=== PATIENT | female | born 1950 | race Caucasian/White ===

== ENCOUNTER → 2020-11-23 14:51 | Outpatient (CLI) | payer MEDICARE, SELFPAY ==
[2020-11-23 17:24] LABS: Absolute Lymphocyte Count 1.34 X10^3/uL (0.83-4.51); Absolute Neutrophil Count 8.7 X10^3/uL (2.0-7.7); Basophil# 0.03 X10^3/uL; Basophil% 0.3 % (0-1); Eosinophil# 0.06 X10^3/uL; Eosinophils% 0.6 % (0-5); Hematocrit 44.6 % (37-47); Lymphocyte # 1.34 X10^3/ul (4.0); Lymphocyte % 12.4 % (19-41); Mean Corp Hgb Conc 35.9 g/dL (32-36); Mean Corpuscular Hgb 34.1 pg (27.0-32.0); Mean Corpuscular Volume 95.1 fL (81-99); Monocyte% 5.6 % (0-10); NRBC Flagged by Analyzer 0 % (0-5); Neutrophil # 8.71 X10^3/uL (2.7-7.7); Neutrophil % 80.7 % (47-70); Platelet Count 217 K/mm3 (150-450); RBC Distribution Width CV 13.2 % (11.6-14.6); RBC Distribution Width SD 42.9 fl (35.1-43.9); Red Blood Count 4.69 M/mm3 (4.2-5.4); White Blood Count 10.8 K/mm3 (4.4-11.0)
[2020-11-23 17:39] LABS: Erythrocyte Sedimentation Rate 19 mm/hr (0-30)
[2020-11-23 17:44] LABS: AST(SGOT) 60 U/L (15-37); Alanine Aminotransfer ALT/SGPT 76 U/L (13-56); Albumin, Serum 3.9 g/dL (3.2-5.0); Alkaline Phosphatase 104 U/L (45-117); Anion Gap 11 (5-15); BUN 6 mg/dL (7-18); BUN/Creat Ratio 7.5 RATIO (10-20); Calcium,Total 9.9 mg/dL (8.5-10.1); Chloride 94 mmol/L (98-107); EST Glomerular Filtration Rate 76 mL/min (>60); Est Glom Filt Rate - Afr Amer 92 mL/min (>60); Globulin 3.9 g/dL (2.2-4.2); Glucose 91 mg/dL (74-106); Potassium 4.7 mmol/L (3.5-5.1); Protein, Total 7.8 g/dL (6.4-8.2); Sodium Level 128 mmol/L (136-145)
== END ==
PROVIDERS: PCP Family Medicine; Visit Provider Family Medicine
DX: R19.7 Diarrhea, unspecified (principal); I10 Essential (primary) hypertension
CPT/HCPCS: 36415; 80053; 85025; 85652; 86140

== ENCOUNTER → 2020-11-24 13:49 | Outpatient (CLI) | payer MEDICARE, SELFPAY | PROVIDERS: PCP Family Medicine; Visit Provider Family Medicine | DX: R19.7 Diarrhea, unspecified (principal); I10 Essential (primary) hypertension | CPT/HCPCS: 83630; 87177; 87209; 87493; 87506 ==

== ENCOUNTER 2021-11-27 12:30 | Inpatient (IN) | payer MEDICARE, SELFPAY ==
[2021-11-27] VITALS (8 sets, daily range): BP systolic 108–163; BP diastolic 62–83; PULSE 82–115; RESP 14–28; TEMP 36.9–39.3; O2SAT 96–100; BMI 32.6; BMI 30.9
--- NOTE | 2021-11-27 12:39 | EKG12_ITS ---
Test Reason : ABDOMINAL PAIN Blood Pressure : / mmHG Vent. Rate : 111 BPM Atrial Rate : 111 BPM P-R Int : 146 ms QRS Dur : 078 ms QT Int : 328 ms P-R-T Axes : 063 020 036 degrees QTc Int : 446 ms Sinus tachycardia Otherwise normal ECG Confirmed by HAILEY STEPHENSON, HARSH ([id number]), department editor DAVI LOWERY ([id number]) on 11/29/2021 10:17:23 AM Referred By: RAMIN Confirmed By:HARSH HART MD
--- NOTE | 2021-11-27 12:40 | EDS_ITS ---
HPI History of Present Illness Chief Complaint: Abd Pain Informant: patient Onset/Context/Timing Onset: Today Context: Gradual Onset Timing: Waxes and wanes Current Severity: Gone Maximum Severity: Moderate Narrative Narrative: Patient presents secondary to abdominal pain. She states she had a bellyache that started around 9 AM this morning. Symptoms lasted about 3 hours and currently are subsided. Patient tried eating a little something but that did not seem to change her pain. No vomiting or diarrhea. No fever or chills. She states she just went to be checked out to make sure this was not an atypical presentation for heart problems. [facility] Medical History Breast cancer Hypertension Home Medications amlodipine 5 mg PO DAILY 08/19/14 [History Last Taken Unknown] metoprolol succinate 100 mg PO DAILY 08/19/14 [History Last Taken Unknown] prednisone 60 mg PO DAILY #15 tablet 08/19/14 [Rx Last Taken Unknown] benazepril 10 mg PO DAILY 11/27/21 [History Last Taken Unknown] Allergy/AdvReac Type Severity Reaction Status Date / Time Penicillins Allergy Anaphylaxis Verified 11/27/21 12:36 Surgical History Hx of left mastectomy Social History Smoking Status: Never smoker ROS ROS ED Constitutional Constitutional ED: Denies chills or fever(s) Eyes Eyes: Denies change in vision ENT ENT ED: Denies sore throat Cardiovascular Cardiovascular: Denies chest pain Respiratory/Chest Respiratory/Chest: Denies cough or dyspnea Gastrointestinal Gastrointestinal: Reports abdominal pain; Denies diarrhea, nausea or vomiting Genitourinary Genitourinary ED: Denies dysuria Musculoskeletal Musculoskeletal: Denies back pain or neck pain Integumentary Denies rash Neurologic Neurologic: Denies headache(s) or weakness Allergic/Immunologic Allergic/Immunologic ED: Denies urticaria EXAM Physical Exam Const Vital Signs: 11/27/21 12:30 11/27/21 13:30 Temperature 98.4 F Temperature Source Oral Pulse Rate 106 H 115 H Respiratory Rate 17 20 H Blood Pressure 124/75 H 163/83 H Blood Pressure Mean 91 109 Pulse Ox 100 99 Oxygen Delivery Method Room Air Room Air Positive well nourished and well developed General Appearance ED: well developed HEENT Reports normocephalic and head/scalp atraumatic Eyes PERRL and EOMs intact bilaterally Neck supple Chest Wall inspection of chest normal and palpation of chest normal Resp normal respiratory effort and clear to auscultation bilaterally Cardio regular rate and regular rhythm GI non-tender Auscultation: hypoactive bowel sounds Palpation: soft Back/Spine no CVA tenderness Extremity normal to inspection Neuro oriented x3 and no sensory deficits noted Sensorium / Orientation: alert Motor Exam: strength 5/5 throughout Psych mental status grossly normal Skin no rashes or lesions noted MDM MDM MDM Narrative Medical decision making narrative: EKG, chest x-ray, lab work obtained. Lab Data Attestation: I reviewed the patient's lab results. Labs: Laboratory Results - last 24 hr 11/27/21 11/27/21 12:50 12:50 WBC 16.4 H RBC 4.97 Hgb 15.7 H Hct 46.5 MCV 93.6 MCH 31.6 MCHC 33.8 RDW Std Deviation 42.8 RDW Coeff of Hui 12.5 Plt Count 219 MPV 8.9 Immature Gran % (Auto) 0.300 Neut % (Auto) 93.3 H Lymph % (Auto) 4.6 L [place] % (Auto) 1.2 Eos % (Auto) 0.4 Baso % (Auto) 0.2 Absolute Neuts (auto) 15.3 H Absolute Lymphs (auto) 0.75 L Nucleated RBC % 0 Sodium 137 Potassium 3.5 Chloride 103 Carbon Dioxide 26.0 Anion Gap 8 BUN 8 Creatinine 0.91 Estim Creat Clear Calc 40.73 Est GFR (MDRD) Af Amer 79 Est GFR (MDRD) Non-Af 65 BUN/Creatinine Ratio 8.8 L Glucose 133 H Calcium 9.6 Total Bilirubin 1.90 H Direct Bilirubin 1.20 H AST 266 H ALT 128 H Alkaline Phosphatase 159 H Troponin I High Sens 4 Total Protein 8.0 Albumin 3.9 Globulin 4.1 Lipase 87 Radiography Diagnostic Testing: Clinical Impression(s) from Imaging Studies Chest X-Ray 11/27/21 13:10 IMPRESSION: No demonstrated acute cardiopulmonary process. Electronically Signed: Nazanin Gibbs MD at 13:21 EST , Gallbladder Ultrasound 11/27/21 13:27 IMPRESSION: Sludge and small gallstones, wall thickening and pericholecystic fluid. Abnormal distention of the common bile duct. Although the sonographic Cannon''s sign is described as negative on this study, Findings are suspicious for acute cholecystitis. Enlarged fatty infiltrated liver. Electronically Signed: Nazanin Gibbs MD at 14:27 EST , ADDENDUM: 11/27/21 1441 IMPRESSION: Sludge and small gallstones, wall thickening and pericholecystic fluid. Abnormal distention of the common bile duct. Although the sonographic Cannon''s sign is described as negative on this study, Findings are suspicious for acute cholecystitis. Enlarged fatty infiltrated liver. N.B. : The above Results were Read Back by Nazanin Gibbs MD to Dr. Genesis Richard MD, and understanding confirmed on 11/27/2021 14:34:34 (ET). Electronically Signed: Naznain Gibbs MD at 14:27 EST , EKG Initial EKG: Attestation: I personally reviewed and interpreted this EKG as follows: Interpretation: Sinus Tachycardia (Sinus tach at 111 with no acute ischemia.) Treatment and Re-Evaluation Comments:: Patient's lab work returns with elevated white count at 16.4 with a left shift. Chemistry studies reveal elevated bilirubin levels, ALT, AST, and alk phos. Patient was sent for ultrasound of her gallbladder. Upon return from ultrasound patient did attempt to take her home medications as she had not taken them yet and proceeded to vomit. She does have a dose of Zofran ordered along with a dose of IV metoprolol. Ultrasound report is consistent with acute cholecystitis. Patient is ordered Levaquin secondary to history of anaphylaxis with penicillins. I spoke with Dr. Olmos who will be in to see the patient. Discharge Plan Triage Chief Complaint: Abd Pain ED Provider: Genesis Richard Dx/Rx/DC Orders Clinical Impression: Acute cholecystitis Prescriptions: No Action metoprolol succinate 100 MG tablet 100 mg PO DAILY RF: 0 amlodipine 2.5 MG tablet 5 mg PO DAILY RF: 0 prednisone 20 MG tablet 60 mg PO DAILY Qty: 15 RF: 0 benazepril 10 mg tablet 10 mg PO DAILY RF: 0 Primary Care Provider: Kenny Rios Referrals: Kenny Rios DO [Primary Care Provider] - Disposition Disposition: Acute Care Hospital [facility]
[2021-11-27 12:58] LABS: Absolute Lymphocyte Count 0.75 X10^3/uL (0.83-4.51); Absolute Neutrophil Count 15.3 X10^3/uL (2.0-7.7); Basophil# 0.04 X10^3/uL; Basophil% 0.2 % (0-1); Eosinophil# 0.06 X10^3/uL; Eosinophils% 0.4 % (0-5); Hematocrit 46.5 % (37-47); Hemoglobin 15.7 g/dL (12.0-15.0); Lymphocyte # 0.75 X10^3/ul (0.83-4.51); Lymphocyte % 4.6 % (19-41); Mean Corp Hgb Conc 33.8 g/dL (32-36); Mean Corpuscular Hgb 31.6 pg (27.0-32.0); Mean Corpuscular Volume 93.6 fL (81-99); Mean Platelet Vol. 8.9 fl (6.2-12.0); Monocyte% 1.2 % (0-10); NRBC Flagged by Analyzer 0 % (0-5); Neutrophil # 15.32 X10^3/uL (2.7-7.7); Neutrophil % 93.3 % (47-70); Platelet Count 219 K/mm3 (150-450); RBC Distribution Width CV 12.5 % (11.6-14.6); RBC Distribution Width SD 42.8 fl (35.1-43.9); Red Blood Count 4.97 M/mm3 (4.2-5.4); White Blood Count 16.4 K/mm3 (4.4-11.0)
--- NOTE | 2021-11-27 13:10 | RAD_ITS ---
STUDY: X-RAY CHEST REASON FOR EXAM: Female, 71 years old. Cp TECHNIQUE: Single AP portable view of the chest. COMPARISON: None. FINDINGS: The lungs are clear and expanded. There is no demonstrated pleural abnormality. Normal size heart. Normal mediastinum and flaquito. Normal visualized pulmonary arteries. Normal visualized aortic arch and descending thoracic aorta. There are diffuse degenerative changes of the visualized thoracic spine. Normal visualized ribs, clavicles, and shoulders. There is no demonstrated abnormality of the visualized soft tissue structures of the upper abdomen. RAD/Chest 1 View (Portable) IMPRESSION: No demonstrated acute cardiopulmonary process. Electronically Signed: Nazanin Gibbs MD at 13:21 EST Reading Location ID and State: [facility] / [place] Tel , Service support ,
[2021-11-27 13:16] LABS: AST(SGOT) 266 U/L (15-37); Alanine Aminotransfer ALT/SGPT 128 U/L (13-56); Albumin, Serum 3.9 g/dL (3.2-5.0); Alkaline Phosphatase 159 U/L (45-117); Anion Gap 8 (5-15); BUN 8 mg/dL (7-18); BUN/Creat Ratio 8.8 RATIO (10-20); Calcium,Total 9.6 mg/dL (8.5-10.1); Chloride 103 mmol/L (98-107); Creatinine, Serum 0.91 mg/dL (0.55-1.02); EST Glomerular Filtration Rate 65 mL/min (>60); Est Glom Filt Rate - Afr Amer 79 mL/min (>60); Estimated Creatinine Clearance 40.73 ml/min; Globulin 4.1 g/dL (2.2-4.2); Glucose 133 mg/dL (74-106); Lipase 87 U/L (73-393); Potassium 3.5 mmol/L (3.5-5.1); Sodium Level 137 mmol/L (136-145); Troponin-I HS 4 pg/mL (3.0-54.0)
--- NOTE | 2021-11-27 13:27 | US_ITS ---
We are attempting to reach an attending provider to discuss findings. An addendum with communication details will be sent when the communication is complete. STUDY: ABDOMINAL ULTRASOUND - RIGHT UPPER QUADRANT REASON FOR VISIT: Female, 71 years old abd pain TECHNIQUE: Ultrasound evaluation of the right upper quadrant was performed with real-time and static benoit-scale imaging. TECHNICAL QUALITY: Adequate. COMPARISON: None. FINDINGS: Liver: The liver measures 18.2 cm. There is increased echogenicity consistent with fatty infiltration. The bile ducts are within normal limits. There is hepatic color flow. The direction of portal flow is hepatopetal. There is no demonstrated mass lesion. Gallbladder: Normal distended gallbladder. The gallbladder wall measures 4 mm. There is a negative sonographic Cannon''s sign. There is pericholecystic fluid. There visualized gallstones in the gallbladder. There is echogenicity and sludge. Common Bile Duct (C.B.D.): The common bile duct measures 8 mm. Pancreas: Normal size of the head, body and tail of the pancreas. There is normal echogenicity of the pancreas. There is no demonstrated pancreatic mass or cyst. Right Kidney: Normal size of the right kidney. The right kidney measures 10.9 x 4.6 x 4.2 cm. Normal renal cortex. The right cortex measures 4.6 cm. There is no demonstrated renal mass or cyst. There is no right hydronephrosis. US/Gallbladder IMPRESSION: Sludge and small gallstones, wall thickening and pericholecystic fluid. Abnormal distention of the common bile duct. Although the sonographic Cannon''s sign is described as negative on this study, Findings are suspicious for acute cholecystitis. Enlarged fatty infiltrated liver. Electronically Signed: Nazanin Gibbs MD at 14:27 EST ,
--- NOTE | 2021-11-27 14:11 | ED.RN ---
Dr. Richard aware of blood pressure and heart rate readings, ok with patient taking home medications that patient has with her.
[2021-11-27] MEDS: Metoprolol Tartrate 5 MG/5 ML Vial IV (15:05)
[2021-11-27] MEDS: Ondansetron 4 MG/2 ML Vial IV (15:05)
--- NOTE | 2021-11-27 15:10 | NURSING ---
DR PARISI IN ROOM
--- NOTE | 2021-11-27 15:19 | CON.PCM.SX_ITS ---
Assessment & Plan Assessment/Plan (1) Acute cholecystitis: PLAN: My plan is to perform a laparoscopic cholecystectomy with intraoperative cholangiogram. The planned surgical procedure was discussed extensively with the patient. The risks, benefits, anticipated outcomes and possible complication were mentioned. My staff has also explained the procedure in understandable terms and the patient was given the option to take printed material concerning the planned procedure. The patient had the opportunity to ask questions concerning the planned procedure. The patient freely consents to the planned procedure. HPI Consult Data Date of Consult: 11/27/21 HPI Narrative HPI Narrative: TRUNG CASTELLANOS, is a 71 F who presents secondary to abdominal pain. She states she had a bellyache that started around 9 AM this morning. Symptoms lasted about 3 hours and currently are subsided. Patient tried eating a little something but that did not seem to change her pain. No vomiting or diarrhea. No fever or chills. She states she just went to be checked out to make sure this was not an atypical presentation for heart problems. I am going to have medicine see the patient to make sure that there is no heart issues that we have to evaluate first. I can find no charting in [place] or in [facility] for any previous heart work-ups in the past. Your presentation today here is pretty classic for acute cholecystitis. [facility] Medical History Breast cancer Hypertension Home Medications amlodipine 5 mg PO DAILY 08/19/14 [History Last Taken Unknown] metoprolol succinate 100 mg PO DAILY 08/19/14 [History Last Taken Unknown] prednisone 60 mg PO DAILY #15 tablet 08/19/14 [Rx Last Taken Unknown] benazepril 10 mg PO DAILY 11/27/21 [History Last Taken Unknown] Allergy/AdvReac Type Severity Reaction Status Date / Time Penicillins Allergy Anaphylaxis Verified 11/27/21 12:36 Surgical History Hx of left mastectomy Social History Smoking Status: Never smoker ROS Constitutional Constitutional: Reports fever(s); Denies chills Cardiovascular Cardiovascular: Denies chest pain Respiratory/Chest Respiratory/Chest: Denies dyspnea Gastrointestinal Gastrointestinal: Reports abdominal pain, nausea and vomiting Musculoskeletal Musculoskeletal: Reports back pain Physical Exam Const alert, oriented x3 and no apparent distress General Appearance: cooperative HEENT normocephalic and head/scalp atraumatic Eyes PERRL and EOMs intact bilaterally Resp clear to auscultation bilaterally Cardio Rate: tachycardic Rhythm: regular rhythm GI soft to palpation Palpation: Negative for tender or guarding Back/Spine no CVA tenderness Lab / Micro Data Result Diagrams: 11/27/21 12:50 11/27/21 12:50 Labs: Laboratory Results - last 24 hr 11/27/21 12:50: WBC 16.4 H, RBC 4.97, Hgb 15.7 H, Hct 46.5, MCV 93.6, MCH 31.6, MCHC 33.8, RDW Std Deviation 42.8, RDW Coeff of Hui 12.5, Plt Count 219, MPV 8.9, Immature Gran % (Auto) 0.300, Neut % (Auto) 93.3 H, Lymph % (Auto) 4.6 L, [place] % (Auto) 1.2, Eos % (Auto) 0.4, Baso % (Auto) 0.2, Absolute Neuts (auto) 15.3 H, Absolute Lymphs (auto) 0.75 L, Nucleated RBC % 0 11/27/21 12:50: Sodium 137, Potassium 3.5, Chloride 103, Carbon Dioxide 26.0, Anion Gap 8, BUN 8, Creatinine 0.91, Estim Creat Clear Calc 40.73, Est GFR (MDRD) Af Amer 79, Est GFR (MDRD) Non-Af 65, BUN/Creatinine Ratio 8.8 L, Glucose 133 H, Calcium 9.6, Total Bilirubin 1.90 H, Direct Bilirubin 1.20 H, AST 266 H, ALT 128 H, Alkaline Phosphatase 159 H, Troponin I High Sens 4, Total Protein 8.0, Albumin 3.9, Globulin 4.1, Lipase 87 Radiology Impression Chest X-Ray 11/27/21 13:10 IMPRESSION: No demonstrated acute cardiopulmonary process. Electronically Signed: Nazanin Gibbs MD at 13:21 EST , Gallbladder Ultrasound 11/27/21 13:27 IMPRESSION: Sludge and small gallstones, wall thickening and pericholecystic fluid. Abnormal distention of the common bile duct. Although the sonographic Cannon''s sign is described as negative on this study, Findings are suspicious for acute cholecystitis. Enlarged fatty infiltrated liver. Electronically Signed: Nazanin Gibbs MD at 14:27 EST , ADDENDUM: 11/27/21 1441 IMPRESSION: Sludge and small gallstones, wall thickening and pericholecystic fluid. Abnormal distention of the common bile duct. Although the sonographic Cannon''s sign is described as negative on this study, Findings are suspicious for acute cholecystitis. Enlarged fatty infiltrated liver. N.B. : The above Results were Read Back by Nazanin Gibbs MD to Dr. Genesis Richard MD, and understanding confirmed on 11/27/2021 14:34:34 (ET). Electronically Signed: Nazanin Gibbs MD at 14:27 EST ,
--- NOTE | 2021-11-27 15:39 | NURSING ---
MED SURG AILIN CHOLECYSTITIS
[2021-11-27] MEDS: levoFLOXacin IV 750 MG/150 ML BAG 100 MG IV (15:50)
--- NOTE | 2021-11-27 15:55 | PN.HOSP_ITS ---
Documented by User: Anish RODRIGUEZ 11/27/21 16:05 Subjective Subjective Patient is a 71-year-old female who is lying in bed, alert and orient x3. Patient looks uncomfortable and reports some abdominal pain, but she reports that this has improved since she has arrived to the emergency department. Does report some nausea and vomiting. Denies chest pain, shortness of breath, palpitations, hemoptysis, sputum production, fever, chills or diarrhea. Objective Data Objective Data Vital Signs: Vital Signs Temp Pulse Resp BP Pulse Ox 102.8 F H 113 H 28 H 150/79 H 96 11/27/21 15:53 11/27/21 15:53 11/27/21 15:53 11/27/21 15:53 11/27/21 15:53 Oxygen Delivery Method Room Air Weight: 167 lb 1.766 oz Body Mass Index (BMI) 32.6 Lab / Micro Data Result Diagrams: 11/27/21 12:50 11/27/21 12:50 Labs: Laboratory Results - last 24 hr 11/27/21 12:50: WBC 16.4 H, RBC 4.97, Hgb 15.7 H, Hct 46.5, MCV 93.6, MCH 31.6, MCHC 33.8, RDW Std Deviation 42.8, RDW Coeff of Hui 12.5, Plt Count 219, MPV 8.9, Immature Gran % (Auto) 0.300, Neut % (Auto) 93.3 H, Lymph % (Auto) 4.6 L, [place] % (Auto) 1.2, Eos % (Auto) 0.4, Baso % (Auto) 0.2, Absolute Neuts (auto) 15.3 H, Absolute Lymphs (auto) 0.75 L, Nucleated RBC % 0 11/27/21 12:50: Sodium 137, Potassium 3.5, Chloride 103, Carbon Dioxide 26.0, Anion Gap 8, BUN 8, Creatinine 0.91, Estim Creat Clear Calc 40.73, Est GFR (MDRD) Af Amer 79, Est GFR (MDRD) Non-Af 65, BUN/Creatinine Ratio 8.8 L, Glucose 133 H, Calcium 9.6, Total Bilirubin 1.90 H, Direct Bilirubin 1.20 H, AST 266 H, ALT 128 H, Alkaline Phosphatase 159 H, Troponin I High Sens 4, Total Protein 8.0, Albumin 3.9, Globulin 4.1, Lipase 87 Radiography Diagnostic Testing: Radiology Impression Chest X-Ray 11/27/21 13:10 IMPRESSION: No demonstrated acute cardiopulmonary process. Electronically Signed: Nazanin Gibbs MD at 13:21 EST Reading Location ID and State: [facility] / [place] Tel , Service support , Gallbladder Ultrasound 11/27/21 13:27 IMPRESSION: Sludge and small gallstones, wall thickening and pericholecystic fluid. Abnormal distention of the common bile duct. Although the sonographic Cannon''s sign is described as negative on this study, Findings are suspicious for acute cholecystitis. Enlarged fatty infiltrated liver. Electronically Signed: Nazanin Gibbs MD at 14:27 EST Reading Location ID and State: [facility] / [place] Tel , Service support , ADDENDUM: 11/27/21 1441 IMPRESSION: Sludge and small gallstones, wall thickening and pericholecystic fluid. Abnormal distention of the common bile duct. Although the sonographic Cannon''s sign is described as negative on this study, Findings are suspicious for acute cholecystitis. Enlarged fatty infiltrated liver. N.B. : The above Results were Read Back by Nazanin Gibbs MD to Dr. Genesis Richard MD, and understanding confirmed on 11/27/2021 14:34:34 (ET). Electronically Signed: Nazanin Gibbs MD at 14:27 EST , Physical Exam Const alert, oriented x3 and no apparent distress HEENT head/scalp atraumatic and moist oral mucous membranes Head and Scalp: normocephalic Eyes PERRL, EOMs intact bilaterally and conjunctivae normal Neck no lymphadenopathy, supple and no JVD Resp Effort and Inspection: tachypneic and labored Cardio no JVD Rate: tachycardic Rhythm: regular rhythm GI normal to inspection, nondistended, normoactive bowel sounds Palpation: tender RUQ Extremity normal to inspection, full ROM and no clubbing, cyanosis or edema Skin no rashes or lesions noted, no wounds and skin turgor normal Neuro CN's II-XII intact bilaterally Psych affect normal Assessment & Plan Assessment/Plan (1) HTN (hypertension): (2) Acute cholecystitis: PLAN: Patient is a 71-year-old female who presents to the hospital medicine service on consult from general surgery who admitted patient for evaluation and management of acute cholecystitis. 1) HTN Elevated, currently 150/79. Patient home BP regimen includes metoprolol, amlodipine and benazepril. Patient does report taking her home meds this morning, but reports vomiting them up. Patient has since been given IV metoprolol in the ED. We will continue amlodipine and metoprolol, will hold benazepril in anticipation for upcoming surgery and concerns over precipitating an ANTONIO. 2) sinus tachycardia EKG on admission demonstrated sinus tachycardia, rate currently 113. Believe this is related to patient's underlying cholecystitis and will defer management thereof. 3) acute cholecystitis Management per general surgery. DVT prophylaxis - SCDs Patient seen by Anish Fuentes PA-C, under the supervision of Dr. Saldivar. Time spent on patient care: 8 minutes. Documented by User: Dr. Dominguez Saldivar MD 11/27/21 17:40 Objective Data Lab / Micro Data Result Diagrams: 11/27/21 12:50 11/27/21 12:50 Charges/Coding Addendum Addendum: Dr. Saldivar: I personally reviewed the chart and examined the patient, and agree with the above findings. 71-year-old female with a history of hypertension presented to the hospital with right upper quadrant abdominal pain. She states that this is been going on for several years but it has been intermittent and generally manageable. She has not noticed any association with any types of food differences in foods. Today she states that the pain came on in the morning and was extremely severe in the right upper quadrant, she had multiple episodes of emesis, she did try to take her home medications but she is not sure if they were able to stay down or not given her emesis. In the ER she was tachycardic and a leukocytosis of 16.4. Gallbladder ultrasound does demonstrate cholecystitis therefore she is septic. She was admitted to surgery and started on IV fluids as well as antibiotics. She is doing well at this time and states that her pain has been controlled with pain medication. We will try to give her her home medications when able, will hold her STACEY inhibitor pending renal evaluation after her surgery and if she does not have an ANTONIO after surgery then can restart her STACEY inhibitor otherwise she can resume her amlodipine and her metoprolol. Of note she states that she is able to ambulate up and down stairs without any chest pain or shortness of breath and she is able to walk several blocks without shortness of breath or chest pain, what limits her and her mobility are her lower extremities being somewhat weaker. Clinical time and all aspects of patient care: 30 minutes Visit Charges OBSV E&M: [id number] Subsequent observation care L3
[2021-11-27] MEDS: Acetaminophen 325 MG Tablet 650 MG PO (16:05)
[2021-11-27] MEDS: 0.9% Normal Saline 1,000 ML 75 ML IV (16:07)
--- NOTE | 2021-11-27 16:12 | ED.RN ---
Patient noted to have developed a fever, 102.8. Dr. Richard notified and tylenol ordered. Patient denied nausea at this time, PO given as prescribed.
[2021-11-28] VITALS (17 sets, daily range): BP systolic 115–152; BP diastolic 59–88; PULSE 78–94; RESP 12–18; TEMP 36.8–37.6; O2SAT 96–100; BMI 33.8
[2021-11-28] MEDS: Lidocaine 5% Patch 1 PATCH TOPICAL ×2 (00:33→20:18)
[2021-11-28 05:48] LABS: Absolute Lymphocyte Count 0.43 X10^3/uL (0.83-4.51); Absolute Neutrophil Count 9.4 X10^3/uL (2.0-7.7); Basophil# 0.02 X10^3/uL; Basophil% 0.2 % (0-1); Eosinophil# 0.02 X10^3/uL; Eosinophils% 0.2 % (0-5); Hemoglobin 13.5 g/dL (12.0-15.0); Lymphocyte # 0.43 X10^3/ul (0.83-4.51); Lymphocyte % 4.2 % (19-41); Mean Corp Hgb Conc 34.6 g/dL (32-36); Mean Corpuscular Hgb 32.1 pg (27.0-32.0); Mean Corpuscular Volume 92.6 fL (81-99); Mean Platelet Vol. 9.5 fl (6.2-12.0); Monocyte# 0.45 X10^3/uL; Monocyte% 4.3 % (0-10); NRBC Flagged by Analyzer 0 % (0-5); Neutrophil # 9.41 X10^3/uL (2.7-7.7); Neutrophil % 90.8 % (47-70); POSITIVE DIFFERENTIAL YES; Platelet Count 182 K/mm3 (150-450); RBC Distribution Width CV 12.8 % (11.6-14.6); RBC Distribution Width SD 43.5 fl (35.1-43.9); Red Blood Count 4.21 M/mm3 (4.2-5.4); White Blood Count 10.4 K/mm3 (4.4-11.0)
[2021-11-28 05:54] LABS: Differential Indicated SCAN CRITERIA MET
[2021-11-28 06:05] LABS: ALB/GLOB Ratio 0.8 RATIO (0.9-2.4); AST(SGOT) 330 U/L (15-37); Alanine Aminotransfer ALT/SGPT 392 U/L (13-56); Alkaline Phosphatase 163 U/L (45-117); Anion Gap 7 (5-15); BUN 10 mg/dL (7-18); BUN/Creat Ratio 11.7 RATIO (10-20); Calcium,Total 8.3 mg/dL (8.5-10.1); Chloride 102 mmol/L (98-107); Creatinine, Serum 0.86 mg/dL (0.55-1.02); EST Glomerular Filtration Rate 69 mL/min (>60); Est Glom Filt Rate - Afr Amer 84 mL/min (>60); Globulin 3.6 g/dL (2.2-4.2); Glucose 99 mg/dL (74-106); Lipase 35 U/L (73-393); Potassium 3.5 mmol/L (3.5-5.1); Protein, Total 6.6 g/dL (6.4-8.2); Sodium Level 135 mmol/L (136-145)
[2021-11-28 06:19] LABS: Differential Comment SCANNED
[2021-11-28] MEDS: 0.9% Normal Saline 1,000 ML 75 ML IV (07:56)
[2021-11-28] MEDS: Metoprolol(XL)Succ 100 MG Tablet PO (08:05)
--- NOTE | 2021-11-28 10:26 | PCM.PN.SRG ---
Subjective Subjective Patient not feeling bad at all today. No abdominal pain like there was yesterday. Objective Data Objective Data Abdomen is soft nontender Vital Signs: Vital Signs Temp Pulse Resp BP Pulse Ox 98.9 F 82 16 121/59 H 98 11/28/21 07:54 11/28/21 08:05 11/28/21 07:54 11/28/21 08:05 11/28/21 07:54 Oxygen Delivery Method Room Air Weight: 173 lb 3 oz Body Mass Index (BMI) 33.8 Intake & Output: Intake and Output for Last 24 Hours 11/26/21 11/27/21 11/28/21 23:59 23:59 23:59 Intake Total 598.25 / 598.25 809.75 / 809.75 Balance 598.25 / 598.25 809.75 / 809.75 Lab / Micro Data Result Diagrams: 11/28/21 05:10 11/28/21 05:10 Labs: Laboratory Results - last 24 hr 11/27/21 12:50: WBC 16.4 H, RBC 4.97, Hgb 15.7 H, Hct 46.5, MCV 93.6, MCH 31.6, MCHC 33.8, RDW Std Deviation 42.8, RDW Coeff of Hui 12.5, Plt Count 219, MPV 8.9, Immature Gran % (Auto) 0.300, Neut % (Auto) 93.3 H, Lymph % (Auto) 4.6 L, [place] % (Auto) 1.2, Eos % (Auto) 0.4, Baso % (Auto) 0.2, Absolute Neuts (auto) 15.3 H, Absolute Lymphs (auto) 0.75 L, Nucleated RBC % 0 11/27/21 12:50: Sodium 137, Potassium 3.5, Chloride 103, Carbon Dioxide 26.0, Anion Gap 8, BUN 8, Creatinine 0.91, Estim Creat Clear Calc 40.73, Est GFR (MDRD) Af Amer 79, Est GFR (MDRD) Non-Af 65, BUN/Creatinine Ratio 8.8 L, Glucose 133 H, Calcium 9.6, Total Bilirubin 1.90 H, Direct Bilirubin 1.20 H, AST 266 H, ALT 128 H, Alkaline Phosphatase 159 H, Troponin I High Sens 4, Total Protein 8.0, Albumin 3.9, Globulin 4.1, Lipase 87 11/28/21 05:10: WBC 10.4, RBC 4.21, Hgb 13.5, Hct 39.0, MCV 92.6, MCH 32.1 H, MCHC 34.6, RDW Std Deviation 43.5, RDW Coeff of Hui 12.8, Plt Count 182, MPV 9.5, Immature Gran % (Auto) 0.300, Neut % (Auto) 90.8 H, Lymph % (Auto) 4.2 L, [place] % (Auto) 4.3, Eos % (Auto) 0.2, Baso % (Auto) 0.2, Absolute Neuts (auto) 9.4 H, Absolute Lymphs (auto) 0.43 L, Nucleated RBC % 0, Differential Comment SCANNED 11/28/21 05:10: Sodium 135 L, Potassium 3.5, Chloride 102, Carbon Dioxide 26.0, Anion Gap 7, BUN 10, Creatinine 0.86, Estim Creat Clear Calc 43.10, Est GFR (MDRD) Af Amer 84, Est GFR (MDRD) Non-Af 69, BUN/Creatinine Ratio 11.7, Glucose 99, Calcium 8.3 L, Total Bilirubin 3.50 H, AST 330 H, ALT 392 H, Alkaline Phosphatase 163 H, Total Protein 6.6, Albumin 3.0 L, Globulin 3.6, Albumin/Globulin Ratio 0.8 L, Lipase 35 L Micro: Microbiology 11/27/21 15:40 Nasal Secretion SARS-CoV-2 Antigen (Rapid) - Final Radiography Diagnostic Testing: Radiology Impression Chest X-Ray 11/27/21 13:10 IMPRESSION: No demonstrated acute cardiopulmonary process. Electronically Signed: Nazanin Gibbs MD at 13:21 EST Reading Location ID and State: [facility] / MD Tel , Service support , Gallbladder Ultrasound 11/27/21 13:27 IMPRESSION: Sludge and small gallstones, wall thickening and pericholecystic fluid. Abnormal distention of the common bile duct. Although the sonographic Cannon''s sign is described as negative on this study, Findings are suspicious for acute cholecystitis. Enlarged fatty infiltrated liver. Electronically Signed: Nazanin Gibbs MD at 14:27 EST , ADDENDUM: 11/27/21 1441 IMPRESSION: Sludge and small gallstones, wall thickening and pericholecystic fluid. Abnormal distention of the common bile duct. Although the sonographic Cannon''s sign is described as negative on this study, Findings are suspicious for acute cholecystitis. Enlarged fatty infiltrated liver. N.B. : The above Results were Read Back by Nazanin Gibbs MD to Dr. Genesis Richard MD, and understanding confirmed on 11/27/2021 14:34:34 (ET). Electronically Signed: Nazanin Gibbs MD at 14:27 EST , Assessment & Plan Assessment/Plan (1) Choledocholithiasis with acute cholecystitis with obstruction: PLAN: I am going to cancel her lap graciela this morning. We will consult Dr. Monk for preoperative ERCP. My plan is to put her back on the surgery schedule for tomorrow probably sometime between 11 and noon
[2021-11-28] MEDS: amLODIPine 5 MG Tablet PO (11:20)
--- NOTE | 2021-11-28 12:59 | EX.PCM.CON.G ---
HPI Consult Data Date of Consult: 11/28/21 HPI Narrative HPI Narrative: TRUNG CASTELLANOS, is a 71 F who presented on November 27, 2021 with abdominal pain. She had abdominal pain that started in the midepigastric region and radiated around to the right upper quadrant. In the ED she got a gallbladder ultrasound that showed a common bile duct of 8 mm without filling defect and a common bile duct and sludge with stones and the gallbladder. She had increase in her liver function tests consistent with a cholestatic hepatitis. She was scheduled for a cholecystectomy today. However she told the nurse that her urine was getting dark. When they checked her labs her bilirubin increased along with an increase in her AST, ALT and alkaline phosphatase. I was consulted for a therapeutic ERCP. At this time she still having some right upper quadrant pain. [facility] Medical History (Updated 11/28/21 @ 10:[address] Alexander Olmos MD) Alcohol abuse Anxiety Atrial fibrillation Breast cancer Hypertension Home Medications amlodipine 5 mg PO DAILY 08/19/14 [History Last Taken 11/27/21] metoprolol succinate 100 mg PO DAILY 08/19/14 [History Last Taken 11/27/21] benazepril 10 mg PO DAILY 11/27/21 [History Last Taken 11/26/21] Allergy/AdvReac Type Severity Reaction Status Date / Time Penicillins Allergy Anaphylaxis Verified 11/27/21 12:36 Surgical History Hx of left mastectomy Social History Smoking Status: Never smoker ROS Gastrointestinal Gastrointestinal: Reports abdominal pain Genitourinary Genitourinary: Reports other Details: Dark in urine Lab / Micro Data Result Diagrams: 11/28/21 05:10 11/28/21 05:10 Labs: Laboratory Results - last 24 hr 11/27/21 12:50: WBC 16.4 H, RBC 4.97, Hgb 15.7 H, Hct 46.5, MCV 93.6, MCH 31.6, MCHC 33.8, RDW Std Deviation 42.8, RDW Coeff of Hui 12.5, Plt Count 219, MPV 8.9, Immature Gran % (Auto) 0.300, Neut % (Auto) 93.3 H, Lymph % (Auto) 4.6 L, [place] % (Auto) 1.2, Eos % (Auto) 0.4, Baso % (Auto) 0.2, Absolute Neuts (auto) 15.3 H, Absolute Lymphs (auto) 0.75 L, Nucleated RBC % 0 11/27/21 12:50: Sodium 137, Potassium 3.5, Chloride 103, Carbon Dioxide 26.0, Anion Gap 8, BUN 8, Creatinine 0.91, Estim Creat Clear Calc 40.73, Est GFR (MDRD) Af Amer 79, Est GFR (MDRD) Non-Af 65, BUN/Creatinine Ratio 8.8 L, Glucose 133 H, Calcium 9.6, Total Bilirubin 1.90 H, Direct Bilirubin 1.20 H, AST 266 H, ALT 128 H, Alkaline Phosphatase 159 H, Troponin I High Sens 4, Total Protein 8.0, Albumin 3.9, Globulin 4.1, Lipase 87 11/28/21 05:10: WBC 10.4, RBC 4.21, Hgb 13.5, Hct 39.0, MCV 92.6, MCH 32.1 H, MCHC 34.6, RDW Std Deviation 43.5, RDW Coeff of Hui 12.8, Plt Count 182, MPV 9.5, Immature Gran % (Auto) 0.300, Neut % (Auto) 90.8 H, Lymph % (Auto) 4.2 L, [place] % (Auto) 4.3, Eos % (Auto) 0.2, Baso % (Auto) 0.2, Absolute Neuts (auto) 9.4 H, Absolute Lymphs (auto) 0.43 L, Nucleated RBC % 0, Differential Comment SCANNED 11/28/21 05:10: Sodium 135 L, Potassium 3.5, Chloride 102, Carbon Dioxide 26.0, Anion Gap 7, BUN 10, Creatinine 0.86, Estim Creat Clear Calc 43.10, Est GFR (MDRD) Af Amer 84, Est GFR (MDRD) Non-Af 69, BUN/Creatinine Ratio 11.7, Glucose 99, Calcium 8.3 L, Total Bilirubin 3.50 H, AST 330 H, ALT 392 H, Alkaline Phosphatase 163 H, Total Protein 6.6, Albumin 3.0 L, Globulin 3.6, Albumin/Globulin Ratio 0.8 L, Lipase 35 L Micro: Microbiology 11/27/21 15:40 Nasal Secretion SARS-CoV-2 Antigen (Rapid) - Final Radiology Impression Chest X-Ray 11/27/21 13:10 IMPRESSION: No demonstrated acute cardiopulmonary process. Electronically Signed: Nazanin Gibbs MD at 13:21 EST , Gallbladder Ultrasound 11/27/21 13:27 IMPRESSION: Sludge and small gallstones, wall thickening and pericholecystic fluid. Abnormal distention of the common bile duct. Although the sonographic Cannon''s sign is described as negative on this study, Findings are suspicious for acute cholecystitis. Enlarged fatty infiltrated liver. Electronically Signed: Nazanin Gibbs MD at 14:27 EST , ADDENDUM: 11/27/21 1441 IMPRESSION: Sludge and small gallstones, wall thickening and pericholecystic fluid. Abnormal distention of the common bile duct. Although the sonographic Cannon''s sign is described as negative on this study, Findings are suspicious for acute cholecystitis. Enlarged fatty infiltrated liver. N.B. : The above Results were Read Back by Nazanin Gibbs MD to Dr. Genesis Richard MD, and understanding confirmed on 11/27/2021 14:34:34 (ET). Electronically Signed: Nazanin Gibbs MD at 14:27 EST , Assessment & Plan Assessment/Plan (1) Choledocholithiasis with acute cholecystitis with obstruction: PLAN: In the setting of common bile duct greater than 6 mm with stones in the gallbladder and increasing LFTs this is consistent with choledocholithiasis plus bili involving into cholangitis. She will undergo ERCP. She was explained alternatives, risks including not withstanding bleeding, infection, sepsis, perforation, post ERCP pancreatitis. She would have an ASA of 3 for the procedure. Charges/Coding Visit Charges Inpatient E&M: 80911 Init Hosp L2
--- NOTE | 2021-11-28 13:47 | RAD_ITS ---
PROCEDURE: ERCP DATE OF EXAMINATION: 11/28/2021 INDICATION: Female, 71 years old. FLUOROSCOPY TIME (if supplied): (0:20) minutes/seconds Radiation Dose (provided by facility) CTDIvol (NA ) mGy, DLP ( NA) mGy-cm EXAMINATION/TECHNIQUE: 9 limited spot intraoperative films are presented for evaluation. COMPARISON: None. FINDINGS: There is documentation retrograde access to the biliary ductal system. There is mild distention consistent with the recent ultrasound examination. There are findings consistent with balloon sweep, no retained filling defects identified. Refer to procedural note for further details. RAD/ERCP Biliary/Pancreas IMPRESSION: 1. Prominence of the biliary ductal system, evidence of balloon sweep without evidence of retained or fixed defects. Electronically Signed: Rafita Foster MD at 23:13 EST ,
[2021-11-28] MEDS: Lactated Ringers 1,000 ML 15 ML IV (14:45)
--- NOTE | 2021-11-28 15:40 | OP.ERCP_ITS ---
Patient Name: Tova Lockett Procedure Date: 11/28/2021 1:23 PM Date of : 1950 Age: 71 Procedure: ERCP Indications: Bile duct stone(s) Providers: Erik Monk DO Medicines: General Anesthesia Patient Profile: This is a 71 year old female. Refer to note in patient chart for documentation of history and physical. Patient has symptoms of acute right upper quadrant abdominal pain. An ultrasound of the gallbladder showed the common bile duct to be dilated. Laboratory tests results include an elevated liver function test. Complications: No immediate complications. Procedure: Pre-Anesthesia Assessment: - Prior to the procedure, a History and Physical was performed, and patient medications and allergies were reviewed. The patient is competent. The risks and benefits of the procedure and the sedation options and risks were discussed with the patient. All questions were answered and informed consent was obtained. Patient identification and proposed procedure were verified by the physician in the pre-procedure area. Mental Status Examination: alert and oriented. Airway Examination: normal oropharyngeal airway and neck mobility. Respiratory Examination: clear to auscultation. CV Examination: normal. Prophylactic Antibiotics: The patient does not require prophylactic antibiotics. Prior Anticoagulants: The patient has taken no previous anticoagulant or antiplatelet agents. ASA Grade Assessment: II - A patient with mild systemic disease. After reviewing the risks and benefits, the patient was deemed in satisfactory condition to undergo the procedure. The anesthesia plan was to use moderate sedation / analgesia (conscious sedation). Immediately prior to administration of medications, the patient was re-assessed for adequacy to receive sedatives. The heart rate, respiratory rate, oxygen saturations, blood pressure, adequacy of pulmonary ventilation, and response to care were monitored throughout the procedure. The physical status of the patient was re-assessed after the procedure. After obtaining informed consent, the scope was passed under direct vision. Throughout the procedure, the patient's blood pressure, pulse, and oxygen saturations were monitored continuously. The duodenoscope was introduced through the mouth, and advanced to the duodenum and used to inject contrast into the bile duct and ventral pancreatic duct. The ERCP was accomplished without difficulty. The ERCP was somewhat difficult due to Proximal esophageal stricture. Successful completion of the procedure was aided by switching to an EGD scope and dilating the proximal esophageal stricture with a 54 Polish savory dilator. Moderate Sedation: Moderate (conscious) sedation was administered by the endoscopy nurse and supervised by the endoscopist. The following parameters were monitored: oxygen saturation, heart rate, blood pressure, and response to care. Total physician intraservice time was 15 minutes. Scope In: Scope Out: Findings: The machining manager film was normal. The esophagus was successfully intubated under direct vision. The scope was advanced to a normal major papilla in the descending duodenum without detailed examination of the pharynx, larynx and associated structures, and upper GI tract. The upper GI tract was grossly normal. The bile duct was deeply cannulated with the short-nosed traction sphincterotome. Contrast was injected. I personally interpreted the bile duct and pancreatic duct images. There was brisk flow of contrast through the ducts. Opacification of the main bile duct, common bile duct, common hepatic duct, hepatic duct bifurcation and entire biliary tree was successful. The maximum diameter of the ducts was 10 mm. The lower third of the main bile duct contained a single localized stenosis 2 mm in length. The lower third of the main bile duct was moderately dilated and locally dilated, uncertain significance. The largest diameter was 10 mm. A 0.035 inch x 260 cm angled Hydra Jagwire passed successfully into the entire biliary tree. A 5 mm biliary sphincterotomy was made with a monofilament traction (standard) sphincterotome using ERBE electrocautery. Moderate bleeding from the sphincterotomy stopped within 5 minutes. The biliary tree was swept with an 11 mm balloon starting at the upper third of the main bile duct. Sludge was swept from the duct. One 10 Fr by 5 cm temporary stent with two external flaps and two internal flaps was placed 5 cm into the common bile duct. Bile flowed through the stent. The stent was in good position. One 4 Fr by 5 cm temporary stent with a single internal pigtail was placed 5 cm into the ventral pancreatic duct. Clear fluid flowed through the stent. The stent was in good position. Impression: - A single localized biliary stricture was found in the lower third of the main bile duct. The stricture was indeterminate. - The lower third of the main bile duct was moderately dilated, uncertain significance. - A biliary sphincterotomy was performed. - The biliary tree was swept and sludge was found. - Benign-appearing esophageal stenosis. Dilated. - Non-bleeding gastric ulcers with no stigmata of bleeding. - Multiple non-bleeding duodenal ulcers with no stigmata of bleeding. Procedure Code(s): --- Professional --- 49227, Endoscopic retrograde cholangiopancreatography (ERCP); with placement of endoscopic stent into biliary or pancreatic duct, including pre- and post-dilation and guide wire passage, when performed, including sphincterotomy, when performed, each stent [id number], 59, Endoscopic retrograde cholangiopancreatography (ERCP); with placement of endoscopic stent into biliary or pancreatic duct, including pre- and post-dilation and guide wire passage, when performed, including sphincterotomy, when performed, each stent [id number], Endoscopic retrograde cholangiopancreatography (ERCP); with removal of calculi/debris from biliary/pancreatic duct(s) 75520, Combined endoscopic catheterization of the biliary and pancreatic ductal systems, radiological supervision and interpretation G0500, Moderate sedation services provided by the same physician or other qualified health director of medicare performing a gastrointestinal endoscopic service that sedation supports, requiring the presence of an independent trained observer to assist in the monitoring of the patient's level of consciousness and physiological status; initial 15 minutes of intra-service time; patient age 5 years or older (additional time may be reported with 87736, as appropriate) CPT copyright 2017 [employer]. All rights reserved. The codes documented in this report are preliminary and upon truck driver's offsider review may be revised to meet current compliance requirements. Erik Monk DO 11/28/2021 3:39:51 PM This report has been signed electronically. Number of Addenda: 0 Note Initiated On: 11/28/2021 1:23 PM
--- NOTE | 2021-11-28 15:41 | OP.CCLET_ITS ---
11/28/2021 Kenny Rios [address] [place] [address] [place] [address] Re : ERCP procedure for Tova Alexanderjanet Dear Dr. Rios This procedure was performed on Sunday, November 28, 2021. My impressions and recommendations are as follows: Impressions : - A single localized biliary stricture was found in the lower third of the main bile duct. The stricture was indeterminate. - The lower third of the main bile duct was moderately dilated, uncertain significance. - A biliary sphincterotomy was performed. - The biliary tree was swept and sludge was found. - Benign-appearing esophageal stenosis. Dilated. - Non-bleeding gastric ulcers with no stigmata of bleeding. - Multiple non-bleeding duodenal ulcers with no stigmata of bleeding. Recommendations : My findings are described in the full procedure note, which is enclosed. If I can be of further assistance, please feel free to contact me at . Sincerely, Erik Monk, 11/28/2021 3:39:51 PM This report has been signed electronically.
[2021-11-28] MEDS: Mag Hydrox/Al Hydrox/Simeth 30 ML UDC PO ×3 (16:32→22:01)
[2021-11-28] MEDS: 0.9% Normal Saline 1,000 ML 250 ML IV ×2 (16:32→20:16)
[2021-11-28] MEDS: Sucralfate 1 GM Tablet PO ×2 (16:45→20:18)
[2021-11-29] VITALS (13 sets, daily range): BP systolic 123–164; BP diastolic 60–84; PULSE 77–90; RESP 16–18; TEMP 37.3–38.1; O2SAT 96–98; BMI 33.8
[2021-11-29] MEDS: Mag Hydrox/Al Hydrox/Simeth 30 ML UDC PO ×3 (01:10→18:05)
[2021-11-29] MEDS: 0.9% Normal Saline 1,000 ML 250 ML IV ×4 (01:10→23:17)
[2021-11-29 06:01] LABS: Absolute Lymphocyte Count 0.59 X10^3/uL (0.83-4.51); Absolute Neutrophil Count 6.4 X10^3/uL (2.0-7.7); Basophil# 0.02 X10^3/uL; Basophil% 0.3 % (0-1); Eosinophil# 0.06 X10^3/uL; Eosinophils% 0.8 % (0-5); Hematocrit 35.9 % (37-47); Hemoglobin 12.3 g/dL (12.0-15.0); Lymphocyte # 0.59 X10^3/ul (0.83-4.51); Lymphocyte % 7.8 % (19-41); Mean Corp Hgb Conc 34.3 g/dL (32-36); Mean Corpuscular Hgb 31.9 pg (27.0-32.0); Mean Platelet Vol. 9.1 fl (6.2-12.0); Monocyte# 0.47 X10^3/uL; Monocyte% 6.2 % (0-10); NRBC Flagged by Analyzer 0 % (0-5); Neutrophil # 6.43 X10^3/uL (2.7-7.7); Neutrophil % 84.6 % (47-70); POSITIVE DIFFERENTIAL YES; Platelet Count 141 K/mm3 (150-450); RBC Distribution Width CV 12.8 % (11.6-14.6); RBC Distribution Width SD 43.6 fl (35.1-43.9); Red Blood Count 3.86 M/mm3 (4.2-5.4); White Blood Count 7.6 K/mm3 (4.4-11.0)
[2021-11-29 06:14] LABS: Differential Indicated SCAN CRITERIA MET
[2021-11-29 06:32] LABS: AST(SGOT) 98 U/L (15-37); Alanine Aminotransfer ALT/SGPT 196 U/L (13-56); Albumin, Serum 2.6 g/dL (3.2-5.0); Alkaline Phosphatase 125 U/L (45-117); Anion Gap 9 (5-15); BUN 8 mg/dL (7-18); BUN/Creat Ratio 11.6 RATIO (10-20); Bilirubin, Direct 0.83 mg/dL (0.00-0.30); Calcium,Total 6.8 mg/dL (8.5-10.1); Chloride 103 mmol/L (98-107); Creatinine, Serum 0.69 mg/dL (0.55-1.02); EST Glomerular Filtration Rate 89 mL/min (>60); Est Glom Filt Rate - Afr Amer 108 mL/min (>60); Estimated Creatinine Clearance 37.06 ml/min; Globulin 3.3 g/dL (2.2-4.2); Glucose 104 mg/dL (74-106); Potassium 2.6 mmol/L (3.5-5.1); Protein, Total 5.9 g/dL (6.4-8.2); Sodium Level 135 mmol/L (136-145)
[2021-11-29] MEDS: Potassium Chloride Oral Tablet 20 MEQ 40 MEQ PO (07:07)
[2021-11-29] MEDS: Potassium Chloride 10mEq/100mL 10 MEQ/100 ML IV.SOLN. 100 MEQ IV BOLUS ×4 (07:07→13:06)
--- NOTE | 2021-11-29 08:09 | PCM.PN.HOSP ---
Subjective Subjective Severe hypokalemia. Hypocalcemia, serum corrected calcium calcium 7.9. Potassium and calcium are getting replaced. Serum magnesium and phosphorus ordered. Objective Data Objective Data Vital Signs: Vital Signs Temp Pulse Resp BP Pulse Ox 99.3 F H 77 16 124/74 H 98 11/29/21 02:01 11/29/21 07:41 11/29/21 02:01 11/29/21 02:01 11/29/21 02:01 Oxygen Delivery Method Room Air Weight: 173 lb 3 oz Body Mass Index (BMI) 33.8 Intake & Output: Intake and Output for Last 24 Hours 11/27/21 11/28/21 11/29/21 23:59 23:59 23:59 Intake Total 598.25 / 598.25 3521.66 / 3521.66 1764.34 / 1764.34 Output Total 1250 / 1250 Balance 598.25 / 598.25 3521.66 / 3221.66 514.34 / 514.34 Lab / Micro Data Result Diagrams: 11/29/21 05:50 11/29/21 05:50 Labs: Laboratory Results - last 24 hr 11/29/21 05:50: WBC 7.6, RBC 3.86 L, Hgb 12.3, Hct 35.9 L, MCV 93.0, MCH 31.9, MCHC 34.3, RDW Std Deviation 43.6, RDW Coeff of Hui 12.8, Plt Count 141 L, MPV 9.1, Immature Gran % (Auto) 0.300, Neut % (Auto) 84.6 H, Lymph % (Auto) 7.8 L, [place] % (Auto) 6.2, Eos % (Auto) 0.8, Baso % (Auto) 0.3, Absolute Neuts (auto) 6.4, Absolute Lymphs (auto) 0.59 L, Nucleated RBC % 0 11/29/21 05:50: Sodium 135 L, Potassium 2.6 L*, Chloride 103, Carbon Dioxide 23.0, Anion Gap 9, BUN 8, Creatinine 0.69, Estim Creat Clear Calc 37.06, Est GFR (MDRD) Af Amer 108, Est GFR (MDRD) Non-Af 89, BUN/Creatinine Ratio 11.6, Glucose 104, Calcium 6.8 L, Total Bilirubin 1.40 H, Direct Bilirubin 0.83 H, AST 98 H, ALT 196 H, Alkaline Phosphatase 125 H, Total Protein 5.9 L, Albumin 2.6 L, Globulin 3.3 Micro: Microbiology 11/27/21 15:40 Nasal Secretion SARS-CoV-2 Antigen (Rapid) - Final Radiography Diagnostic Testing: Radiology Impression Endo Retro Cholangiopancreatogram 11/28/21 13:47 IMPRESSION: 1. Prominence of the biliary ductal system, evidence of balloon sweep without evidence of retained or fixed defects. Electronically Signed: Rafita Foster MD at 23:13 EST , Physical Exam Narrative General: Alert, Oriented x3, Cooperative HEENT: Atraumatic, PERRLA, EOMI, Normocephalic Oral: No Gingival or Mucosal Lesions/ Ulcerations Neck: Supple, No JVD, Negative Carotid Bruits Lungs: Air entry equal in bilateral lung bases. No crepitation/rhonchi Cardiovascular: Regular rate, Regular Rhythm, Normal S1, Normal S2, No murmurs Abdomen: Bowel Sounds Present, Soft, Non Tender, Non-Distended : No renal angle tenderness. No suprapubic tenderness. Extremities: No edema, Capillary Refill Less than 3 Seconds Skin: No rashes, No breakdown Musculoskeletal: No Tenderness to Palpation of Joints or Extremities Neurological: Cranial nerves II-XII grossly intact, DTR 2+/4 and Symmetrical, Neuro grossly intact Psych/Mental Status: Normal Affect, Appropriate. Assessment & Plan Assessment/Plan (1) Choledocholithiasis with acute cholecystitis with obstruction: PLAN: The patient is a 71-year-old female who was admitted in general surgery service for management of acute cholecystitis who presents to the hospital medicine service on consult from general surgery who admitted patient for evaluation and management of acute cholecystitis. 1) acute cholecystitis with cholelithiasis and CBD dilatation. Patient had GB ultrasound which showed cholelithiasis, wall thickening, pericholecystic fluid and sludge suggestive of acute cholecystitis with cholelithiasis. Furthermore patient liver chemistry were abnormal predominantly cholestatic picture. Therefore ERCP was done by senior associate Dr. Monk. Findings were choledocholithiasis/CBD sludge, single localized biliary stricture lower one third of CBD with moderate dilatation of uncertain significance suspicion of choledocholithiasis. Low threshold benign-appearing esophageal stricture which was dilated, nonbleeding gastric ulcer with no stigmata of bleeding and multiple nonbleeding duodenal ulcers with no estimate of bleeding. Overall, surgery and GI progress note reviewed. There is suspicion of questionable mass/stricture and dilatation around the distal CBD therefore surgery, cholecystectomy on hold. 2. Hypertension: Blood pressure is controlled. #3 normal. The patient home BP regimen includes metoprolol, amlodipine and benazepril. Currently blood pressure is normal without benazepril therefore will not resume it. 3) sinus tachycardia on admission: Resolved. Probably due to acute cholecystitis currently normal sinus rhythm EKG on admission demonstrated sinus tachycardia, rate currently 113. DVT prophylaxis - SCDs Clinical Impression(s) from Imaging Studies Chest X-Ray 11/27/21 13:10 IMPRESSION: No demonstrated acute cardiopulmonary process. Gallbladder Ultrasound 11/27/21 13:27 IMPRESSION: Sludge and small gallstones, wall thickening and pericholecystic fluid. Abnormal distention of the common bile duct. Although the sonographic Cannon''s sign is described as negative on this study, Findings are suspicious for acute cholecystitis. Enlarged fatty infiltrated liver. Endo Retro Cholangiopancreatogram 11/28/21 13:47 IMPRESSION: 1. Prominence of the biliary ductal system, evidence of balloon sweep without evidence of retained or fixed defects. Electronically Signed: Rafita Fostre MD at 23:13 EST ,
[2021-11-29 08:35] LABS: Phosphorus 2.8 mg/dL (2.5-4.9)
[2021-11-29] MEDS: Metoprolol(XL)Succ 100 MG Tablet PO (09:19)
--- NOTE | 2021-11-29 12:16 | PN.SURG_ITS ---
Subjective Subjective Patient is not complaining of any pain or discomfort today. Patient has significant abnormalities with her ERCP with a questionable mass located in the distal common bile duct pancreatic area. Objective Data Objective Data Abdomen is soft and nontender. Vital Signs: Vital Signs Temp Pulse Resp BP Pulse Ox 99.1 F 82 16 123/60 H 97 11/29/21 09:00 11/29/21 09:19 11/29/21 09:00 11/29/21 09:19 11/29/21 09:00 Oxygen Delivery Method Room Air Weight: 173 lb 3 oz Body Mass Index (BMI) 33.8 Intake & Output: Intake and Output for Last 24 Hours 11/27/21 11/28/21 11/29/21 23:59 23:59 23:59 Intake Total 598.25 / 598.25 3521.66 / 3521.66 1966.09 / 1966.09 Output Total 1250 / 1250 Balance 598.25 / 598.25 3521.66 / 3221.66 716.09 / 716.09 Lab / Micro Data Result Diagrams: 11/29/21 05:50 11/29/21 05:50 Labs: Laboratory Results - last 24 hr 11/29/21 05:50: WBC 7.6, RBC 3.86 L, Hgb 12.3, Hct 35.9 L, MCV 93.0, MCH 31.9, MCHC 34.3, RDW Std Deviation 43.6, RDW Coeff of Hui 12.8, Plt Count 141 L, MPV 9.1, Immature Gran % (Auto) 0.300, Neut % (Auto) 84.6 H, Lymph % (Auto) 7.8 L, [place] % (Auto) 6.2, Eos % (Auto) 0.8, Baso % (Auto) 0.3, Absolute Neuts (auto) 6.4, Absolute Lymphs (auto) 0.59 L, Nucleated RBC % 0 11/29/21 05:50: Sodium 135 L, Potassium 2.6 L*, Chloride 103, Carbon Dioxide 23.0, Anion Gap 9, BUN 8, Creatinine 0.69, Estim Creat Clear Calc 37.06, Est GFR (MDRD) Af Amer 108, Est GFR (MDRD) Non-Af 89, BUN/Creatinine Ratio 11.6, Glucose 104, Calcium 6.8 L, Total Bilirubin 1.40 H, Direct Bilirubin 0.83 H, AST 98 H, ALT 196 H, Alkaline Phosphatase 125 H, Total Protein 5.9 L, Albumin 2.6 L, Globulin 3.3 11/29/21 05:50: Phosphorus 2.8 Micro: Microbiology 11/27/21 15:40 Nasal Secretion SARS-CoV-2 Antigen (Rapid) - Final Radiography Diagnostic Testing: Radiology Impression Endo Retro Cholangiopancreatogram 11/28/21 13:47 IMPRESSION: 1. Prominence of the biliary ductal system, evidence of balloon sweep without evidence of retained or fixed defects. Electronically Signed: Rafita Foster MD at 23:13 EST , Assessment & Plan Assessment/Plan (1) Choledocholithiasis with acute cholecystitis with obstruction: PLAN: I am placing her gallbladder surgery on hold indefinitely until Dr. Monk can complete his work-up. Normal white count liver function tests are drifting down and would prefer not taking her to surgery if she is going to need a much larger surgery in the near future.
[2021-11-29] MEDS: amLODIPine 5 MG Tablet PO (13:19)
--- NOTE | 2021-11-29 15:06 | CHAPLAIN ---
Type of Pastoral Visit _x__ Initial Visit ___ Follow-up Visit ___ On-call Visit ___ General Patient Visit ___ Spiritual Assessment ___ Family Conference ___ Bereavement ___ Rapid Response ___ Code Blue ___ Other (describe below) Pastoral Care Referral From _x__ Patient ___ Family ___ Nurse ___ Physician ___ News Agent ___ Machine Zipper Trimmer ___ Other (describe below) Sacrament/Intervention _x__ Active listening ___ Anointing ___ Cheondoism ___ Bereavement ___ Communion ___ Chyna exploration ___ _x__ Life review _x__ Prayer ___ Reconciliation ___ Sacrament of Sick _x__ Supportive presence ___ Wedding ___ Other (describe below) Pastoral Comments patient wanted to see this school fundraising director and express thanks for seeing her on several occasions when he was in the hospital; spouse of pt has since but pt remembers kindness shown; this patient has some concern about test findings on her pancreatis; results are unknown but pt states she is prepared for the worst; pt welcomes presence and prayer support as well as future visits as needed
[2021-11-29] MEDS: 0.9% Saline Lock 10 ML Syringe IV ×2 (15:17→23:17)
--- NOTE | 2021-11-29 18:23 | PN_ITS ---
Subjective Subjective Patient does have a little bit of pain with swallowing but that is improving.Her abdominal pain is only a 2 out of 10. Every now and then she gets what she calls a gallbladder attack but it is not that severe. She rates that a 3 out of a 10 Objective Data Objective Data Vital Signs: Vital Signs Temp Pulse Resp BP Pulse Ox 99.2 F H 88 18 163/84 H 96 11/29/21 17:52 11/29/21 17:52 11/29/21 17:52 11/29/21 17:52 11/29/21 17:52 Oxygen Delivery Method Room Air Weight: 173 lb 4.533 oz Body Mass Index (BMI) 33.8 Intake & Output: Intake and Output for Last 24 Hours 11/27/21 11/28/21 11/29/21 23:59 23:59 23:59 Intake Total 598.25 / 598.25 3521.66 / 3521.66 3342.09 / 3342.09 Output Total 1250 / 1250 Balance 598.25 / 598.25 3521.66 / 3221.66 2092.09 / 2092.09 Lab / Micro Data Result Diagrams: 11/29/21 05:50 11/29/21 05:50 Labs: Laboratory Results - last 24 hr 11/29/21 05:50: WBC 7.6, RBC 3.86 L, Hgb 12.3, Hct 35.9 L, MCV 93.0, MCH 31.9, MCHC 34.3, RDW Std Deviation 43.6, RDW Coeff of Hui 12.8, Plt Count 141 L, MPV 9.1, Immature Gran % (Auto) 0.300, Neut % (Auto) 84.6 H, Lymph % (Auto) 7.8 L, [place] % (Auto) 6.2, Eos % (Auto) 0.8, Baso % (Auto) 0.3, Absolute Neuts (auto) 6.4, Absolute Lymphs (auto) 0.59 L, Nucleated RBC % 0 11/29/21 05:50: Sodium 135 L, Potassium 2.6 L*, Chloride 103, Carbon Dioxide 23.0, Anion Gap 9, BUN 8, Creatinine 0.69, Estim Creat Clear Calc 37.06, Est GFR (MDRD) Af Amer 108, Est GFR (MDRD) Non-Af 89, BUN/Creatinine Ratio 11.6, Glucose 104, Calcium 6.8 L, Total Bilirubin 1.40 H, Direct Bilirubin 0.83 H, AST 98 H, ALT 196 H, Alkaline Phosphatase 125 H, Total Protein 5.9 L, Albumin 2.6 L, Globulin 3.3 11/29/21 05:50: Phosphorus 2.8 Micro: Microbiology 11/27/21 15:40 Nasal Secretion SARS-CoV-2 Antigen (Rapid) - Final Radiography Diagnostic Testing: Radiology Impression Endo Retro Cholangiopancreatogram 11/28/21 13:47 IMPRESSION: 1. Prominence of the biliary ductal system, evidence of balloon sweep without evidence of retained or fixed defects. Electronically Signed: Rafita Foster MD at 23:13 EST , Physical Exam Const alert General Appearance: cooperative Orientation / Consciousness: oriented to person HEENT hearing grossly normal bilaterally Head and Scalp: normal to inspection Face and Sinus: face symmetric Nose: external nose normal Mouth: oral and palatal mucosa normal Eyes conjunctivae normal General Eye: normal appearance of both eyes Neck full ROM General: normal visual inspection Lymph Lymphatic: no lymphadenopathy noted Chest inspection of chest normal and palpation of chest normal Chest: symmetrical chest wall rise Resp normal respiratory effort Effort and Inspection: able to speak in complete sentences Cardio regular rate GI non-distended Percussion: normal to percussion Rectal Exam: deferred Neuro Speech: speech normal Gait (Neuro): normal gait Assessment & Plan Assessment/Plan (1) Biliary stricture: PLAN: Status post ERCP with sphincterotomy, dilation and stent placement postop day 1. Patient can be DC to home tomorrow. She will follow up in the clinic. She will need further work-up including endoscopic ultrasound, CT scan of the abdomen pelvis and await CA 19-9
--- NOTE | 2021-11-29 19:01 | CT_ITS ---
STUDY: CT ABDOMEN AND PELVIS WITH CONTRAST REASON FOR EXAM: Female, 71 years old. Sig elevated CA 19-9, Biliary stricture s/p ERCP RADIATION DOSAGE (If Supplied By Facility): CTDIvol = ( 16.44 ) mGy, DLP = ( 965.21 ) mGycm TECHNIQUE: Transaxial images were obtained from the dome of the diaphragm to the symphysis pubis without oral contrast. IV 100mL Isovue-370 was administered. Sagittal and coronal images were reconstructed. Individualized dose optimization techniques were used for this CT. COMPARISON: None. FINDINGS: The visualized lung bases are unremarkable. The visualized portions of the heart are within normal limits. Liver is unremarkable aside from a likely hemangioma in the right lobe along the falciform ligament. There are scattered simple cysts as well. There has been a previous cholecystectomy and there is evidence of pneumobilia. Biliary stent is noted. Normal spleen. There is dilatation of the pancreatic duct which is to be expected after cholecystectomy. There is induration of the peripancreatic fat but there is no discrete lesion identified. Normal bilateral adrenal glands. No obstructive uropathy or suspicious solid renal lesion. There is a simple left renal cyst. No specific follow-up needed. There is a small hiatal hernia. There is some mucosal thickening of the gastric antrum suggesting gastritis. Nondistended fluid-filled small bowel loops are noted consistent with ileus. There are a few scattered colonic diverticula without acute diverticulitis. There is non-visualization of the appendix. There is diffuse atherosclerotic calcification of the abdominal aorta, without a demonstrated aneurysm. Normal inferior vena cava. Normal retroperitoneum. Normal urinary bladder. The uterus is present, the endometrium cannot be accurately evaluated with CT. Normal abdominal wall. There are diffuse degenerative changes of the visualized lumbar spine, and pelvis. CT/Abdomen/Pelvis W IV Cont ONLY IMPRESSION: Previous cholecystectomy with placement of a biliary stent. There is expected pneumobilia and dilatation of the pancreatic duct. However, there is subtle induration of the peripancreatic fat suggesting pancreatitis. There is no discrete pancreatic lesion. Submucosal thickening of the gastric antrum suggests gastritis. Small bowel ileus Colonic diverticulosis Simple hepatic cysts and likely hemangioma along the falciform ligament. No specific follow-up needed Uterus is present, the endometrium cannot be accurately evaluated with CT. Degenerative bony changes Electronically Signed: Nayan Nath MD at 19:23 EST ,
[2021-11-29] MEDS: Sucralfate 1 GM Tablet PO (22:13)
[2021-11-30 02:48] VITALS: BP 135/72; PULSE 88; RESP 18; TEMP 37.5; O2SAT 96
[2021-11-30] MEDS: Mag Hydrox/Al Hydrox/Simeth 30 ML UDC PO ×3 (02:59→10:44)
[2021-11-30 03:00] VITALS: PULSE 84
[2021-11-30] MEDS: 0.9% Normal Saline 1,000 ML 250 ML IV ×2 (03:00→08:27)
[2021-11-30 04:23] LABS: Absolute Lymphocyte Count 0.68 X10^3/uL (0.83-4.51); Absolute Neutrophil Count 5.1 X10^3/uL (2.0-7.7); Basophil# 0.01 X10^3/uL; Basophil% 0.2 % (0-1); Eosinophil# 0.06 X10^3/uL; Eosinophils% 0.9 % (0-5); Hematocrit 35.6 % (37-47); Hemoglobin 12.1 g/dL (12.0-15.0); Lymphocyte # 0.68 X10^3/ul (0.83-4.51); Lymphocyte % 10.7 % (19-41); Mean Corpuscular Hgb 31.9 pg (27.0-32.0); Mean Corpuscular Volume 93.9 fL (81-99); Mean Platelet Vol. 9.8 fl (6.2-12.0); Monocyte# 0.52 X10^3/uL; Monocyte% 8.2 % (0-10); NRBC Flagged by Analyzer 0 % (0-5); Neutrophil # 5.06 X10^3/uL (2.7-7.7); Neutrophil % 79.8 % (47-70); Platelet Count 168 K/mm3 (150-450); RBC Distribution Width CV 12.8 % (11.6-14.6); Red Blood Count 3.79 M/mm3 (4.2-5.4); White Blood Count 6.3 K/mm3 (4.4-11.0)
[2021-11-30 04:48] LABS: ALB/GLOB Ratio 0.8 RATIO (0.9-2.4); AST(SGOT) 41 U/L (15-37); Alanine Aminotransfer ALT/SGPT 125 U/L (13-56); Albumin, Serum 2.6 g/dL (3.2-5.0); Alkaline Phosphatase 110 U/L (45-117); Anion Gap 6 (5-15); BUN 4 mg/dL (7-18); BUN/Creat Ratio 7.5 RATIO (10-20); Calcium,Total 7.5 mg/dL (8.5-10.1); Chloride 109 mmol/L (98-107); Creatinine, Serum 0.54 mg/dL (0.55-1.02); EST Glomerular Filtration Rate 119 mL/min (>60); Est Glom Filt Rate - Afr Amer 144 mL/min (>60); Estimated Creatinine Clearance 37.06 ml/min; Globulin 3.4 g/dL (2.2-4.2); Glucose 79 mg/dL (74-106); Potassium 3.3 mmol/L (3.5-5.1); Sodium Level 137 mmol/L (136-145)
[2021-11-30] MEDS: Sucralfate 1 GM Tablet PO ×2 (06:16→10:43)
[2021-11-30 07:42] VITALS: O2SAT 95
[2021-11-30 08:28] VITALS: BP 129/67; PULSE 81; RESP 13; TEMP 36.8; O2SAT 95
[2021-11-30 08:33] LABS: MG Sendout 1.2 mg/dL (1.6-2.3)
[2021-11-30 08:34] LABS: Carbohydrate AG 19-9 < 2 U/mL (0-35)
--- NOTE | 2021-11-30 10:05 | CASEMGMT ---
RN JARED Face to Face with patient for initial transition planning/care coordination assessment. RN CM introduced self and role at [facility]. Patient lying in bed, alert and oriented. Patient willing to participate in assessment and is able to answer all questions appropriately. Care providers, pharmacy, and demographics verified. Patient wishes to discharge home, denies need for home health at this time. Patient states she has no further needs or concerns at this time. CM to follow for discharge planning needs that may arise. PCP: Gabriel Specialists: none Preferred Pharmacy: [facility] retail at discharge Insurance: [employer] [facility] Prescription Benefit: yes Living Will/HPOA: none LNOK: friend, Amira Living Arrangements: Patient lives alone in a bi-level home with 6-8 steps between levels with railing. Patient states she is independent at home and able to ambulate stairs. Transportation: self, friend DME/HHC: Patient denies DME or previous HHC. Disposition Plan: Patient to discharge home with family support and follow-up plans in place. Neeta STONE, RN, CM
[2021-11-30 10:47] VITALS: PULSE 81
[2021-11-30] MEDS: Metoprolol(XL)Succ 100 MG Tablet PO (10:47)
[2021-11-30] MEDS: amLODIPine 5 MG Tablet PO (10:47)
--- NOTE | 2021-11-30 11:15 | PCM.DC.SUM ---
Providers Date of Admission: 11/29/21 Primary Care Physician: Dr. Kenny Rios, Consultations 11/27/21 17:37 Consult: Hospitalist Routine Consulting Provider: Dominguez Saldivar Reason for Consult: medical management EMERGENT Consult: No Notified: Yes Date Notified: 11/27/21 Time Notified: 17:37 Method of Notification: spoke with physician 11/28/21 10:03 Consult: Gastroenterology Routine Consulting Provider: [facility] Reason for Consult: Possible CBD stone may need ERCP EMERGENT Consult: No Notified: Yes Date Notified: 11/28/21 Time Notified: 10:03 Method of Notification: Verbal Reason For Visit: ACUTE CHOLECYSTITIS Diagnosis Discharge Diagnosis (1) Biliary stricture: Status: Acute Code(s): K83.1 - Obstruction of bile duct Plan: and further work-upPatient will be following back up with Dr. Monk for stent removals for her abnormal lab test Medications at Discharge Home Medications amlodipine 5 mg PO DAILY 08/19/14 metoprolol succinate 100 mg PO DAILY 08/19/14 benazepril 10 mg PO DAILY 11/27/21 Weight / BMI Weight Weight: 173 lb 4.533 oz Body Mass Index (BMI) 33.8 ABG / Lab / Microbiology Data Result Diagrams: 11/30/21 03:19 11/30/21 03:19 Laboratory: Laboratory Results - last 24 hr 11/28/21 16:10: CA 19-9 Antigen < 2 11/29/21 05:50: Magnesium 1.2 L 11/30/21 03:19: WBC 6.3, RBC 3.79 L, Hgb 12.1, Hct 35.6 L, MCV 93.9, MCH 31.9, MCHC 34.0, RDW Std Deviation 44.0 H, RDW Coeff of Hui 12.8, Plt Count 168, MPV 9.8, Immature Gran % (Auto) 0.200, Neut % (Auto) 79.8 H, Lymph % (Auto) 10.7 L, [place] % (Auto) 8.2, Eos % (Auto) 0.9, Baso % (Auto) 0.2, Absolute Neuts (auto) 5.1, Absolute Lymphs (auto) 0.68 L, Nucleated RBC % 0 11/30/21 03:19: Sodium 137, Potassium 3.3 L, Chloride 109 H, Carbon Dioxide 22.0, Anion Gap 6, BUN 4 L, Creatinine 0.54 L, Estim Creat Clear Calc 37.06, Est GFR (MDRD) Af Amer 144, Est GFR (MDRD) Non-Af 119, BUN/Creatinine Ratio 7.5 L, Glucose 79, Calcium 7.5 L, Total Bilirubin 1.00, AST 41 H, ALT 125 H, Alkaline Phosphatase 110, Total Protein 6.0 L, Albumin 2.6 L, Globulin 3.4, Albumin/Globulin Ratio 0.8 L Microbiology: Microbiology 11/27/21 15:40 Nasal Secretion SARS-CoV-2 Antigen (Rapid) - Final Radiography Diagnostic Testing: Radiology Impression Abdomen/Pelvis CT 11/29/21 19:01 IMPRESSION: Previous cholecystectomy with placement of a biliary stent. There is expected pneumobilia and dilatation of the pancreatic duct. However, there is subtle induration of the peripancreatic fat suggesting pancreatitis. There is no discrete pancreatic lesion. Submucosal thickening of the gastric antrum suggests gastritis. Small bowel ileus Colonic diverticulosis Simple hepatic cysts and likely hemangioma along the falciform ligament. No specific follow-up needed Uterus is present, the endometrium cannot be accurately evaluated with CT. Degenerative bony changes Electronically Signed: Nayan Nath MD at 19:23 EST , D/C Instructions Discharge Diet: Light diet - advance as tolerated Discharge Activity: Return to Normal Activity May resume sexual activity in: No Restrictions Call your doctor if you observe: Fever of 101 or Higher Please Follow Up With: Friend,Erik, When: 1 week Meaningful Use Info Meaningful Use Diagnoses (Choose all that apply): None applicable Discharge Plan Admission Admit Date/Time: 11/29/21 14:13 Attending Provider: Alexander Olmos Primary Care Provider: Kenny Rios Consulting Providers: Dominguez Saldivar Discharge Orders/Prescriptions Prescriptions: No Action metoprolol succinate 100 MG tablet 100 mg PO DAILY RF: 0 amlodipine 2.5 MG tablet 5 mg PO DAILY RF: 0 benazepril 10 mg tablet 10 mg PO DAILY RF: 0 Referrals / Follow Up: Kenny Rios DO [Primary Care Provider] -
--- NOTE | 2021-11-30 11:18 | EX.PCM.DISCH ---
Discharge Instructions Procedure General Surgery Diet Discharge Diet: Light diet - advance as tolerated Activity Discharge Activity: May Not Drive (for 1 week or while taking narcotic pain medicine.) May shower in (days): 1 May resume sexual activity in: No Restrictions Lifting Restrictions: 10 pounds Dressing / Incision Call your doctor if your incision/area has: Continuous Slow Oozing, Sudden Increased Bleeding, Increased Pain/ Swelling, Increased Redness and Foul Smelling Discharge Call your doctor if you observe: Fever of 101 or Higher Suture Line Care: Avoid Pulling/Pushing and Avoid Pinching/Bending Additional Dressing/Incision Instructions:: Change or remove dressing in 4 days. Leave steri-strips in place for 1 week. Follow Up Care Please Follow Up With: Erik Monk DO When: Call office to schedule an appointment to be seen in about 10 days. Test Results: Test results from this visit will be discussed in further detail at your follow-up appointment, if applicable. Discharge Plan Admission Admit Date/Time: 11/29/21 14:13 Attending Provider: Alexander Olmos Primary Care Provider: Kenny Rios Consulting Providers: Dominguez Saldivar Rahsaan Discharge Orders/Prescriptions Prescriptions: No Action metoprolol succinate 100 MG tablet 100 mg PO DAILY RF: 0 amlodipine 2.5 MG tablet 5 mg PO DAILY RF: 0 benazepril 10 mg tablet 10 mg PO DAILY RF: 0 Referrals / Follow Up: Kenny Rios DO [Primary Care Provider] - Erik Monk DO [STAFF PHYSICIAN] - In 1 Week
--- NOTE | 2021-11-30 12:40 | PN.HOSP_ITS ---
Subjective Subjective Patient does not have abdominal pain or tenderness. She had 2 loose bowel movement. Antibiotic clindamycin discontinued. On IV Protonix and sucralfate. IV fluid discontinued Objective Data Objective Data Vital Signs: Vital Signs Temp Pulse Resp BP Pulse Ox 98.2 F 81 13 129/67 H 95 11/30/21 08:28 11/30/21 10:47 11/30/21 08:28 11/30/21 08:28 11/30/21 08:28 Oxygen Delivery Method Room Air Weight: 173 lb 4.533 oz Body Mass Index (BMI) 33.8 Intake & Output: Intake and Output for Last 24 Hours 11/28/21 11/29/21 11/30/21 23:59 23:59 23:59 Intake Total 3521.66 / 3521.66 4562.26 / 4562.26 2332.67 / 2332.67 Output Total 1250 / 1250 Balance 3521.66 / 3221.66 3312.26 / 3312.26 2332.67 / 2332.67 Lab / Micro Data Result Diagrams: 11/30/21 03:19 11/30/21 03:19 Labs: Laboratory Results - last 24 hr 11/28/21 16:10: CA 19-9 Antigen < 2 11/29/21 05:50: Magnesium 1.2 L 11/30/21 03:19: WBC 6.3, RBC 3.79 L, Hgb 12.1, Hct 35.6 L, MCV 93.9, MCH 31.9, MCHC 34.0, RDW Std Deviation 44.0 H, RDW Coeff of Hui 12.8, Plt Count 168, MPV 9.8, Immature Gran % (Auto) 0.200, Neut % (Auto) 79.8 H, Lymph % (Auto) 10.7 L, [place] % (Auto) 8.2, Eos % (Auto) 0.9, Baso % (Auto) 0.2, Absolute Neuts (auto) 5.1, Absolute Lymphs (auto) 0.68 L, Nucleated RBC % 0 11/30/21 03:19: Sodium 137, Potassium 3.3 L, Chloride 109 H, Carbon Dioxide 22.0, Anion Gap 6, BUN 4 L, Creatinine 0.54 L, Estim Creat Clear Calc 37.06, Est GFR (MDRD) Af Amer 144, Est GFR (MDRD) Non-Af 119, BUN/Creatinine Ratio 7.5 L, Glucose 79, Calcium 7.5 L, Total Bilirubin 1.00, AST 41 H, ALT 125 H, Alkaline Phosphatase 110, Total Protein 6.0 L, Albumin 2.6 L, Globulin 3.4, Albumin/Globulin Ratio 0.8 L Micro: Microbiology 11/27/21 15:40 Nasal Secretion SARS-CoV-2 Antigen (Rapid) - Final Radiography Diagnostic Testing: Radiology Impression Abdomen/Pelvis CT 11/29/21 19:01 IMPRESSION: Previous cholecystectomy with placement of a biliary stent. There is expected pneumobilia and dilatation of the pancreatic duct. However, there is subtle induration of the peripancreatic fat suggesting pancreatitis. There is no discrete pancreatic lesion. Submucosal thickening of the gastric antrum suggests gastritis. Small bowel ileus Colonic diverticulosis Simple hepatic cysts and likely hemangioma along the falciform ligament. No specific follow-up needed Uterus is present, the endometrium cannot be accurately evaluated with CT. Degenerative bony changes Electronically Signed: Nayan Nath MD at 19:23 EST , Physical Exam Narrative General: Alert, Oriented x3, Cooperative HEENT: Atraumatic, PERRLA, EOMI, Normocephalic Oral: No Gingival or Mucosal Lesions/ Ulcerations Neck: Supple, No JVD, Negative Carotid Bruits Lungs: Air entry equal in bilateral lung bases. No crepitation/rhonchi Cardiovascular: Regular rate, Regular Rhythm, Normal S1, Normal S2, No murmurs Abdomen: Bowel Sounds Present, Soft, Non Tender, Non-Distended : No renal angle tenderness. No suprapubic tenderness. Extremities: No edema, Capillary Refill Less than 3 Seconds Skin: No rashes, No breakdown Musculoskeletal: No Tenderness to Palpation of Joints or Extremities Neurological: Cranial nerves II-XII grossly intact, DTR 2+/4 and Symmetrical, Neuro grossly intact Psych/Mental Status: Normal Affect, Appropriate. Assessment & Plan Assessment/Plan (1) Choledocholithiasis with acute cholecystitis with obstruction: PLAN: The patient is a 71-year-old female who was admitted in general surgery service for management of acute cholecystitis who presents to the hospital medicine service on consult from general surgery who admitted patient for evaluation and management of acute cholecystitis. 1) acute cholecystitis with cholelithiasis and CBD dilatation. Patient had GB ultrasound which showed cholelithiasis, wall thickening, pericholecystic fluid and sludge suggestive of acute cholecystitis with cholelithiasis. Furthermore patient liver chemistry were abnormal predominantly cholestatic picture. Therefore ERCP was done by solar photovoltaic designer Dr. Monk. Findings were choledocholithiasis/CBD sludge, single localized biliary stricture lower one third of CBD with moderate dilatation of uncertain significance suspicion of choledocholithiasis. Low threshold benign-appearing esophageal stricture which was dilated, nonbleeding gastric ulcer with no stigmata of bleeding and multiple nonbleeding duodenal ulcers with no estimate of bleeding. Overall, surgery and GI progress note reviewed. There is suspicion of questionable mass/stricture and dilatation around the distal CBD therefore surgery, cholecystectomy on hold. 11/30: CT abdomen individually reviewed. There is pneumobilia with biliary stent. Pancreatic dilated. Follow with GI. Patient had mild diarrhea prior to antibiotic which is discontinued. Started on lactobacillus probiotic advised to take it for 1 week. Patient does not meet criteria for C. difficile testing. Discussed with Dr. Olmos. Discharged on Protonix and Carafate. Gallbladder ultrasound, CT findings and ERCP findings explained to the patient and emphasized the need to follow-up with GI Dr. Monk in 2 weeks. 2. Hypertension: Blood pressure is controlled. #3 normal. The patient home BP regimen includes metoprolol, amlodipine and benazepril. Currently blood pressure is normal without benazepril therefore will not resume it. 3) sinus tachycardia on admission: Resolved. Probably due to acute cholecystitis currently normal sinus rhythm EKG on admission demonstrated sinus tachycardia, rate currently 113. DVT prophylaxis - SCDs Clinical Impression(s) from Imaging Studies Chest X-Ray 11/27/21 13:10 IMPRESSION: No demonstrated acute cardiopulmonary process. Gallbladder Ultrasound 11/27/21 13:27 IMPRESSION: Sludge and small gallstones, wall thickening and pericholecystic fluid. Abnormal distention of the common bile duct. Although the sonographic Cannon''s sign is described as negative on this study, Findings are suspicious for acute cholecystitis. Enlarged fatty infiltrated liver. Endo Retro Cholangiopancreatogram 11/28/21 13:47 IMPRESSION: 1. Prominence of the biliary ductal system, evidence of balloon sweep without evidence of retained or fixed defects. Electronically Signed: Rafita Foster MD at 23:13 EST , Charges/Coding Visit Charges Inpatient E&M: 50285 Subs Hosp L2
== END 2021-11-30 12:53 | disposition home or self-care (01) | DRG 446 ==
LOC: ED 14:53 → MS3 15:43
PROVIDERS: Anesthesiology; Internal Medicine; Internal Medicine Gastroenterology; Admitting Provider Surgery; Emergency Provider Emergency Medicine; PCP Family Medicine; Visit Provider Surgery
PROC: (CPT 43260; principal; 2021-11-28 13:30)
DX: K80.63 Calculus of gallbladder and bile duct with acute cholecystitis with obstruction (principal); E83.51 Hypocalcemia; K75.89 Other specified inflammatory liver diseases; K76.0 Fatty (change of) liver, not elsewhere classified; K22.2 Esophageal obstruction; I10 Essential (primary) hypertension; E87.6 Hypokalemia; E83.42 Hypomagnesemia; K26.9 Duodenal ulcer, unspecified as acute or chronic, without hemorrhage or perforation; K25.9 Gastric ulcer, unspecified as acute or chronic, without hemorrhage or perforation; R00.0 Tachycardia, unspecified; Z79.899 Other long term (current) drug therapy
CPT/HCPCS: 36415; 71045; 74177; 74330; 76000; 76705; 80048; 80053; 80076; 83690; 83735; 84100; 84484; 85025; 86301; 87426; 93005; 99251; 99285; J7030; J7050; J7120; Q9967; A4216; C1769; G0463; J0610; J2405

== ENCOUNTER 2021-12-17 06:50 | Outpatient (CLI) | payer MEDICARE, SELFPAY ==
--- NOTE | 2021-12-17 06:53 | CT_ITS ---
STUDY: CT ABDOMEN AND PELVIS WITH CONTRAST REASON FOR EXAM: Female, 71 years old. Eval if pancreatitis has resolved RADIATION DOSAGE (If Supplied By Facility): CTDIvol = ( 20.59 ) mGy, DLP = ( 875.85 ) mGycm TECHNIQUE: Transaxial images were obtained from the dome of the diaphragm to the symphysis pubis without oral contrast. IV 100mL Isovue-300 was administered. Sagittal and coronal images were reconstructed. Individualized dose optimization techniques were used for this CT. COMPARISON: Comparison is made with prior study dated 11/29/2021. FINDINGS: The visualized lung bases are unremarkable. The visualized portions of the heart are within normal limits. Stable 1.4 cm hypodense nodule in the right lobe of the liver adjacent to the falciform ligament most likely representing an hemangioma. A subcentimeter cyst is seen in the medial right lobe of the liver as well as along its inferior aspect. These are unchanged. A biliary stent is seen within the common bile duct with the distal tip in the second portion of the duodenum and the proximal tip in the region of the bob hepatis. Minimal residual dilatation of the common bile duct. Findings suggestive of tiny gallstones along the dependent portion of the gallbladder lumen. Normal spleen. Normal pancreas. Normal bilateral adrenal glands. Normal right kidney. Normal left kidney. Normal visualized stomach. Normal small intestine. There are multiple colonic diverticula consistent with diverticulosis. The appendix is visualized and appears normal. There is scattered atherosclerotic calcification of the abdominal aorta, without a demonstrated aneurysm. Normal inferior vena cava. Normal retroperitoneum. Normal urinary bladder. Normal abdominal wall. There are degenerative changes of the visualized lumbar spine. CT/Abdomen/Pelvis W IV Cont ONLY IMPRESSION: Biliary stent is in situ. Findings suggestive of tiny gallstones. Scattered sigmoid diverticula. Electronically Signed: Xavier Caballero MD at 7:58 EST ,
== END 2021-12-17 23:59 | disposition home or self-care (01) ==
LOC: CT 06:51
PROVIDERS: PCP Family Medicine; Referring Provider Nurse Practitioner Adult Health; Visit Provider Nurse Practitioner Adult Health
DX: K83.1 Obstruction of bile duct (principal); K85.90 Acute pancreatitis without necrosis or infection, unspecified; K57.30 Diverticulosis of large intestine without perforation or abscess without bleeding
CPT/HCPCS: 74177; Q9967

== ENCOUNTER 2022-01-28 21:25 | Emergency (ER) | payer MEDICARE, SELFPAY ==
[2022-01-28 21:25] VITALS: BP 158/81; PULSE 91; RESP 18; TEMP 36.4; O2SAT 100; BMI 27.3
--- NOTE | 2022-01-28 21:46 | EKG12_ITS ---
Test Reason : DYSRHYTHMIA Blood Pressure : / mmHG Vent. Rate : 074 BPM Atrial Rate : 074 BPM P-R Int : 148 ms QRS Dur : 084 ms QT Int : 382 ms P-R-T Axes : 070 024 039 degrees QTc Int : 424 ms Normal sinus rhythm Normal ECG Confirmed by HAILEY STEPHENSON, HARSH ([id number]), content editor YUDITH ORLANDO ([id number]) on 02/02/2022 10:32:52 AM Referred By: ELIECER Confirmed By:HARSH HART MD
[2022-01-28 21:58] LABS: Absolute Lymphocyte Count 2.17 X10^3/uL (0.83-4.51); Absolute Neutrophil Count 4.9 X10^3/uL (2.0-7.7); Basophil# 0.05 X10^3/uL; Basophil% 0.6 % (0-1); Eosinophil# 0.25 X10^3/uL; Eosinophils% 3.2 % (0-5); Hematocrit 48.2 % (37-47); Hemoglobin 16.4 g/dL (12.0-15.0); Lymphocyte # 2.17 X10^3/ul (0.83-4.51); Lymphocyte % 27.6 % (19-41); Mean Corpuscular Hgb 31.9 pg (27.0-32.0); Mean Corpuscular Volume 93.8 fL (81-99); Mean Platelet Vol. 9.9 fl (6.2-12.0); Monocyte# 0.47 X10^3/uL; NRBC Flagged by Analyzer 0 % (0-5); Neutrophil # 4.89 X10^3/uL (2.7-7.7); Neutrophil % 62.3 % (47-70); POSITIVE COUNT YES; Platelet Count 314 K/mm3 (150-450); RBC Distribution Width CV 12.2 % (11.6-14.6); RBC Distribution Width SD 42.5 fl (35.1-43.9); Red Blood Count 5.14 M/mm3 (4.2-5.4); White Blood Count 7.9 K/mm3 (4.4-11.0)
[2022-01-28] MEDS: 0.9% Normal Saline 1,000 ML 125 ML IV (22:00)
[2022-01-28 22:01] LABS: Differential Indicated SCAN CRITERIA MET
--- NOTE | 2022-01-28 22:13 | ED.VIS.GI ---
HPI HPI - GI History of Present Illness Chief Complaint: Abd Pain Informant: patient Narrative Narrative: Patient is a 71-year-old female with history of hypertension and recent cholecystitis with cholelithiasis, biliary stricture and pancreatitis. Patient had an ERCP with endoscopic stents placement into the common bile duct on 11/28/2021. Patient was hospitalized on 11/28 - 11/30 for this. She is not had her gallbladder removed yet. Patient is to be seen and seen by Dr. Olmos and Dr. Friend. She states she was told she needs to make sure her pancreas is gotten better until he can remove her gallbladder. Tonight patient developed worsening abdominal pain with nausea. She describes it as a spasm-like pain. It feels like her prior admission to the hospital. She denies any change in her bowel habits. Did not take any medication prior to arrival. No fever or chills. No chest pain or difficulty breathing. No other complaints at this time. [facility] Medical History Alcohol abuse Anxiety Atrial fibrillation Breast cancer Hypertension Home Medications amlodipine 5 mg PO DAILY 08/19/14 [History Last Taken 11/27/21] metoprolol succinate 100 mg PO DAILY 08/19/14 [History Last Taken 11/27/21] benazepril 10 mg PO DAILY 11/27/21 [History Last Taken 11/26/21] acidophilus-pectin, citrus 1 tab PO TID #0 tab 11/30/21 [Rx Last Taken Unknown] cholecalciferol (vitamin D3) 10 mcg (400 unit) capsule 10 mcg PO DAILY 12/09/21 [History Last Taken Unknown] mecobalamin (vitamin B12) 1,000 mcg chewable tablet 1,000 mcg PO DAILY 12/09/21 [History Last Taken Unknown] potassium gluconate 595 mg (99 mg) tablet 595 mg PO DAILY 12/09/21 [History Last Taken Unknown] famotidine [Pepcid] 20 mg PO BID #14 tab 01/29/22 [Rx Last Taken Unknown] hydrocodone-acetaminophen 1 tab PO Q6H PRN 3 Days #12 tab 01/29/22 [Rx Last Taken Unknown] ondansetron 4 mg PO Q6H PRN #14 tab 01/29/22 [Rx Last Taken Unknown] Allergy/AdvReac Type Severity Reaction Status Date / Time Penicillins Allergy Anaphylaxis Verified 01/28/22 21:27 Surgical History Hx of left mastectomy Social History Smoking Status: Never smoker ROS ROS ED Constitutional Constitutional ED: Denies chills or fever(s) ENT ENT ED: Denies rhinorrhea or sore throat Cardiovascular Cardiovascular: Denies chest pain Respiratory/Chest Respiratory/Chest: Denies cough or dyspnea Gastrointestinal Gastrointestinal: Reports abdominal pain and nausea; Denies constipation or diarrhea Genitourinary Genitourinary ED: Denies dysuria or hematuria Musculoskeletal Musculoskeletal: Denies myalgias Integumentary Denies rash Neurologic Neurologic: Denies headache(s) or weakness Psychiatric Psychiatric: Denies depression EXAM Physical Exam Const Vital Signs: 01/28/22 21:25 Temperature 97.6 F L Temperature Source Temporal Pulse Rate 91 Respiratory Rate 18 Blood Pressure 158/81 H Blood Pressure Mean 106 Pulse Ox 100 Oxygen Delivery Method Room Air Positive well nourished and well developed General Appearance ED: well developed HEENT normocephalic and atraumatic Eyes PERRL and EOMs intact bilaterally Neck supple Resp normal respiratory effort and clear to auscultation bilaterally Cardio regular rate, regular rhythm and no murmurs GI non-distended Auscultation: normoactive bowel sounds Palpation: soft and tender epigastric (mild) Extremity full ROM General Extremety ED: Negative for edema or tenderness General Extremity: Negative for edema Neuro Sensorium / Orientation: alert Motor Exam: Negative for general weakness Psych mental status grossly normal Skin Lesions: no lesions Rashes: no rashes MDM MDM MDM Narrative Medical decision making narrative: Patient evaluated for intermittent episodes of squeezing upper abdominal pain. She recently has had acute cholecystitis secondary to obstructing stone. She is gone through an ERCP. She still has her gallbladder. She is following with Dr. Monk as well as Dr. Olmos. CBC is largely normal however her hemoglobin is mildly elevated at 16.4. CMP is normal as well as her lipase.-See troponin is normal. EKG is normal. I think this is referred cardiac pain. Right upper quadrant ultrasound obtained which does not show signs of acute cholecystitis. Differential includes biliary colic versus peptic ulcer disease/gastritis. Pancreatitis and choledocholithiasis less likely given normal lipase and appropriate position of biliary stent. Given no white blood cell count, fever or acute inflammatory changes on ultrasound I have low suspicion for acute cholecystitis. Will trial GI cocktail. Will discuss case with GI for final disposition. Patient has no significant provement with GI cocktail. Will discharge home with some [place] for pain control. Will also give prescription for Zofran. Will follow up with surgery and GI early next week. Dr. Monk agreeable with outpatient follow-up given stable ultrasound and normal labs today. Lab Data Attestation: I reviewed the patient's lab results. Labs: Laboratory Results - last 24 hr 01/28/22 01/28/22 21:50 21:50 WBC 7.9 RBC 5.14 Hgb 16.4 H Hct 48.2 H MCV 93.8 MCH 31.9 MCHC 34.0 RDW Std Deviation 42.5 RDW Coeff of Hui 12.2 Plt Count 314 MPV 9.9 Immature Gran % (Auto) 0.300 Neut % (Auto) 62.3 Lymph % (Auto) 27.6 [place] % (Auto) 6.0 Eos % (Auto) 3.2 Baso % (Auto) 0.6 Absolute Neuts (auto) 4.9 Absolute Lymphs (auto) 2.17 Nucleated RBC % 0 Platelet Estimate ADEQUATE Plt Morphology Comment LARGE RBC Morphology N CHROM Anisocytosis RARE Macrocytosis RARE Sodium 136 Potassium 3.9 Chloride 105 Carbon Dioxide 22.0 Anion Gap 9 BUN 8 Creatinine 0.68 Estim Creat Clear Calc 37.06 Est GFR (MDRD) Af Amer 110 Est GFR (MDRD) Non-Af 91 BUN/Creatinine Ratio 11.8 Glucose 95 Calcium 10.3 H Total Bilirubin 0.70 Direct Bilirubin 0.13 AST 31 ALT 27 Alkaline Phosphatase 97 Troponin I High Sens < 3 L Total Protein 8.0 Albumin 3.9 Globulin 4.1 Lipase 131 Radiography Diagnostic Testing: Clinical Impression(s) from Imaging Studies Gallbladder Ultrasound 01/28/22 22:21 IMPRESSION: Status post biliary stent manipulation with pneumobilia and slight decrease in the diameter of the common bile duct. Hypoechoic hepatic lesions likely corresponding to known hepatic cysts. at 2335 Reported and signed by: Braulio Roberts MD Electronically Signed: Braulio Roberts MD at 23:34 EDT Reading Location ID and State: [facility] / [place] Tel , Service support , Rhythm Strip Rhythm Strip: Sinus Rhythm Rate: 74 Ectopy: None EKG Initial EKG: Attestation: I personally reviewed and interpreted this EKG as follows: Interpretation: Sinus Rhythm Comments: Normal sinus rhythm rate 74 Normal axis Normal intervals Normal ST segments Discharge Plan Triage Chief Complaint: Abd Pain ED Provider: Melanie Gutiérrez Dx/Rx/DC Orders Clinical Impression: Biliary colic, Acute upper abdominal pain, History of biliary duct stent placement Instructions: ED Gallstones with Biliary Colic Prescriptions: New ondansetron 4 mg tablet,disintegrating 4 mg PO Q6H PRN (Reason: nausea and vomiting) Qty: 14 RF: 0 hydrocodone-acetaminophen 5-325 mg tablet 1 tab PO Q6H PRN (Reason: pain) 3 Days Qty: 12 RF: 0 famotidine [Pepcid] 20 mg tablet 20 mg PO BID Qty: 14 RF: 0 No Action potassium gluconate 595 mg (99 mg) tablet 595 mg PO DAILY RF: 0 cholecalciferol (vitamin D3) 10 mcg (400 unit) capsule 10 mcg PO DAILY RF: 0 B12 Active 1,000 mcg tablet,chewable 1,000 mcg PO DAILY RF: 0 metoprolol succinate 100 MG tablet 100 mg PO DAILY RF: 0 amlodipine 2.5 MG tablet 5 mg PO DAILY RF: 0 benazepril 10 mg tablet 10 mg PO DAILY RF: 0 acidophilus-pectin, citrus 25 million cell -100 mg Tablet 1 tab PO TID Qty: 0 RF: 0 Primary Care Provider: Kenny Rios Referrals: Alexander Olmos MD [STAFF PHYSICIAN] - Kenny Rios DO [Primary Care Provider] - Erik Monk DO [STAFF PHYSICIAN] - Disposition Disposition: Home, Self Care
[2022-01-28 22:18] LABS: AST(SGOT) 31 U/L (15-37); Alanine Aminotransfer ALT/SGPT 27 U/L (13-56); Albumin, Serum 3.9 g/dL (3.2-5.0); Alkaline Phosphatase 97 U/L (45-117); Anion Gap 9 (5-15); BUN 8 mg/dL (7-18); BUN/Creat Ratio 11.8 RATIO (10-20); Bilirubin, Direct 0.13 mg/dL (0.00-0.30); Calcium,Total 10.3 mg/dL (8.5-10.1); Chloride 105 mmol/L (98-107); Creatinine, Serum 0.68 mg/dL (0.55-1.02); EST Glomerular Filtration Rate 91 mL/min (>60); Est Glom Filt Rate - Afr Amer 110 mL/min (>60); Estimated Creatinine Clearance 37.06 ml/min; Globulin 4.1 g/dL (2.2-4.2); Glucose 95 mg/dL (74-106); Lipase 131 U/L (73-393); Potassium 3.9 mmol/L (3.5-5.1); Sodium Level 136 mmol/L (136-145); Troponin-I HS < 3 pg/mL (3.0-54.0)
--- NOTE | 2022-01-28 22:21 | US_ITS ---
HISTORY: Abdominal pain 5 days status post biliary stent placement. TECHNIQUE: Lyon scale and color Doppler imaging was performed of the right upper quadrant. COMPARISON: CT abdomen and pelvis 12/17/21 FINDINGS: # of images incl. paperwork: 105 LIVER: Multiple hypoechoic lesions. 1.9 cm lesion right lobe corresponds to hepatic cyst on prior CT, left lobe lesions may correspond to smaller cysts on prior CT but correlation not precise. Small amount of gas in the proximal intrahepatic bile ducts consistent with pneumobilia. GALLBLADDER: Contracted with sludge and multiple calculi. BILE DUCTS: The extrahepatic common duct measures 8 mm in AP diameter, which is decreased from prior CT examination. Biliary stent visible. PANCREAS: No acute abnormality of the visualized portion. RIGHT KIDNEY: 10.5 cm long axis. No hydronephrosis. US/Gallbladder IMPRESSION: Status post biliary stent manipulation with pneumobilia and slight decrease in the diameter of the common bile duct. Hypoechoic hepatic lesions likely corresponding to known hepatic cysts. at 2335 Reported and signed by: Braulio Roberts MD Electronically Signed: Braulio Roberts MD at 23:34 EDT Reading Location ID and State: [facility] / [place] Tel , Service support ,
[2022-01-28 22:31] LABS: Anisocytosis RARE; Macrocytosis RARE; Platelet Estimate ADEQUATE (ADEQ); Platelet Morphology LARGE; Red Cell Morphology N CHROM NORMAL (NORM C&C)
[2022-01-29] MEDS: Mag Hydrox/Al Hydrox/Simeth 30 ML UDC PO (00:58)
[2022-01-29] MEDS: Ondansetron 4 MG/2 ML Vial IV (01:36)
--- NOTE | 2022-01-29 01:55 | EX.ED.DYSGE1 ---
HPI History of Present Illness Chief Complaint: Abd Pain [facility] Medical History Alcohol abuse Anxiety Atrial fibrillation Breast cancer Hypertension Home Medications amlodipine 5 mg PO DAILY 08/19/14 [History Last Taken 11/27/21] metoprolol succinate 100 mg PO DAILY 08/19/14 [History Last Taken 11/27/21] benazepril 10 mg PO DAILY 11/27/21 [History Last Taken 11/26/21] acidophilus-pectin, citrus 1 tab PO TID #0 tab 11/30/21 [Rx Last Taken Unknown] cholecalciferol (vitamin D3) 10 mcg (400 unit) capsule 10 mcg PO DAILY 12/09/21 [History Last Taken Unknown] mecobalamin (vitamin B12) 1,000 mcg chewable tablet 1,000 mcg PO DAILY 12/09/21 [History Last Taken Unknown] potassium gluconate 595 mg (99 mg) tablet 595 mg PO DAILY 12/09/21 [History Last Taken Unknown] famotidine [Pepcid] 20 mg PO BID #14 tab 01/29/22 [Rx Last Taken Unknown] famotidine [Pepcid] 20 mg PO BID #14 tab 01/29/22 [Rx Last Taken Unknown] hydrocodone-acetaminophen 1 tab PO Q6H PRN 3 Days #12 tab 01/29/22 [Rx Last Taken Unknown] ondansetron 4 mg PO Q6H PRN #14 tab 01/29/22 [Rx Last Taken Unknown] ondansetron 4 mg PO Q8H PRN PRN #10 tab 01/29/22 [Rx Last Taken Unknown] oxycodone-acetaminophen [Percocet] 1 tab PO Q6H PRN 3 Days #12 tab 01/29/22 [Rx Last Taken Unknown] Allergy/AdvReac Type Severity Reaction Status Date / Time Penicillins Allergy Anaphylaxis Verified 01/28/22 21:27 Surgical History Hx of left mastectomy Social History Smoking Status: Never smoker EXAM Physical Exam Const Vital Signs: 01/28/22 21:25 Temperature 97.6 F L Temperature Source Temporal Pulse Rate 91 Respiratory Rate 18 Blood Pressure 158/81 H Blood Pressure Mean 106 Pulse Ox 100 Oxygen Delivery Method Room Air [facility] MDM Lab Data Labs: Laboratory Results - last 24 hr 01/28/22 01/28/22 21:50 21:50 WBC 7.9 RBC 5.14 Hgb 16.4 H Hct 48.2 H MCV 93.8 MCH 31.9 MCHC 34.0 RDW Std Deviation 42.5 RDW Coeff of Hui 12.2 Plt Count 314 MPV 9.9 Immature Gran % (Auto) 0.300 Neut % (Auto) 62.3 Lymph % (Auto) 27.6 [place] % (Auto) 6.0 Eos % (Auto) 3.2 Baso % (Auto) 0.6 Absolute Neuts (auto) 4.9 Absolute Lymphs (auto) 2.17 Nucleated RBC % 0 Platelet Estimate ADEQUATE Plt Morphology Comment LARGE RBC Morphology N CHROM Anisocytosis RARE Macrocytosis RARE Sodium 136 Potassium 3.9 Chloride 105 Carbon Dioxide 22.0 Anion Gap 9 BUN 8 Creatinine 0.68 Estim Creat Clear Calc 37.06 Est GFR (MDRD) Af Amer 110 Est GFR (MDRD) Non-Af 91 BUN/Creatinine Ratio 11.8 Glucose 95 Calcium 10.3 H Total Bilirubin 0.70 Direct Bilirubin 0.13 AST 31 ALT 27 Alkaline Phosphatase 97 Troponin I High Sens < 3 L Total Protein 8.0 Albumin 3.9 Globulin 4.1 Lipase 131 Radiography Diagnostic Testing: Clinical Impression(s) from Imaging Studies Gallbladder Ultrasound 01/28/22 22:21 IMPRESSION: Status post biliary stent manipulation with pneumobilia and slight decrease in the diameter of the common bile duct. Hypoechoic hepatic lesions likely corresponding to known hepatic cysts. at 2335 Reported and signed by: Braulio Roberts MD Electronically Signed: Braulio Roberts MD at 23:34 EDT , Rhythm Strip Rhythm Strip: Sinus Rhythm Rate: 74 Ectopy: None Discharge Plan Triage Chief Complaint: Abd Pain ED Provider: Melanie Gutiérrez Dx/Rx/DC Orders Clinical Impression: Biliary colic, Acute upper abdominal pain, History of biliary duct stent placement Instructions: ED Gallstones with Biliary Colic Prescriptions: New ondansetron 4 mg tablet,disintegrating 4 mg PO Q6H PRN (Reason: nausea and vomiting) Qty: 14 RF: 0 hydrocodone-acetaminophen 5-325 mg tablet 1 tab PO Q6H PRN (Reason: pain) 3 Days Qty: 12 RF: 0 famotidine [Pepcid] 20 mg tablet 20 mg PO BID Qty: 14 RF: 0 famotidine [Pepcid] 20 mg tablet 20 mg PO BID Qty: 14 RF: 0 oxycodone-acetaminophen [Percocet] 5-325 mg tablet 1 tab PO Q6H PRN (Reason: pain) 3 Days Qty: 12 RF: 0 ondansetron [ondansetron] 4 MG tablet 4 mg PO Q8H PRN PRN (Reason: Nausea) Qty: 10 RF: 0 No Action potassium gluconate 595 mg (99 mg) tablet 595 mg PO DAILY RF: 0 cholecalciferol (vitamin D3) 10 mcg (400 unit) capsule 10 mcg PO DAILY RF: 0 B12 Active 1,000 mcg tablet,chewable 1,000 mcg PO DAILY RF: 0 metoprolol succinate 100 MG tablet 100 mg PO DAILY RF: 0 amlodipine 2.5 MG tablet 5 mg PO DAILY RF: 0 benazepril 10 mg tablet 10 mg PO DAILY RF: 0 acidophilus-pectin, citrus 25 million cell -100 mg Tablet 1 tab PO TID Qty: 0 RF: 0 Primary Care Provider: Kenny Rios Referrals: Alexander Olmos MD [STAFF PHYSICIAN] - Kenny Rios DO [Primary Care Provider] - Erik Monk DO [STAFF PHYSICIAN] - Disposition Disposition: Home, Self Care
--- NOTE | 2022-01-29 01:59 | CT_ITS ---
STUDY: CT ABDOMEN AND PELVIS WITH CONTRAST REASON FOR EXAM: Female, 71 years old. abdominal pain RADIATION DOSAGE (If Supplied By Facility): CTDIvol = ( 17.70 ) mGy, DLP = ( 872.03 ) mGycm TECHNIQUE: Transaxial images were obtained from the dome of the diaphragm to the symphysis pubis without oral contrast. IV 100mL Isovue-370 was administered. Sagittal and coronal images were reconstructed. Individualized dose optimization techniques were used for this CT. COMPARISON: CT abdomen pelvis 12/17/2021. FINDINGS: LOWER CHEST: Included lung bases are clear. LIVER: Small low-attenuation structures unchanged. Questionable mild periportal edema. Suboptimal on noncontrast CT. This could be related to IV fluid hydration, or inflammatory. GALLBLADDER AND BILIARY TREE: Gallbladder contracted with multiple gallstones. Stent in the CBD unchanged position. Mildly dilated CBD and intrahepatic ducts similar to the prior study. Air in the biliary tree related to the stent.. PANCREAS: Grossly unremarkable. SPLEEN: Grossly unremarkable. ADRENAL GLANDS: Grossly unremarkable. KIDNEYS AND URETERS: No calculi demonstrated. No hydronephrosis. PERITONEUM: No free air. No free fluid. BOWEL: Diverticula scattered throughout the colon. No bowel obstruction. APPENDIX: Visualized and unremarkable. No evidence of acute appendicitis. VESSELS: Abdominal aorta is normal caliber. REPRODUCTIVE ORGANS: Grossly unremarkable URINARY BLADDER: Moderately distended.. ABDOMINAL WALL: Unremarkable. BONES: No acute abnormalities. CT/Abdomen/Pelvis W IV Cont ONLY IMPRESSION: 1. Biliary stent in place with no significant change in mild biliary dilatation. 2. Possibly mild periportal edema in the liver nonspecific. 3. Cholelithiasis contracted gallbladder. 4. Colonic diverticulosis without evidence of acute diverticulitis. Electronically Signed: Quyen Grossman MD at 2:55 EDT ,
[2022-01-29] MEDS: HYDROmorphone 1 MG/ML Syringe IV (02:05)
[2022-01-29 03:09] VITALS: BP 129/81; PULSE 79; RESP 15; O2SAT 95
== END 2022-01-29 03:28 | disposition home or self-care (01) ==
PROVIDERS: Emergency Provider Emergency Medicine; PCP Family Medicine; Visit Provider Emergency Medicine
DX: K80.50 Calculus of bile duct without cholangitis or cholecystitis without obstruction (principal); I10 Essential (primary) hypertension; Z96.89 Presence of other specified functional implants; Z79.899 Other long term (current) drug therapy
CPT/HCPCS: 36415; 74177; 76705; 80048; 80076; 83690; 84484; 85025; 93005; 96361; 96374; 96375; 99283; J7030; Q9967; A4216; J2405